=== PATIENT | female | born 1965 | race Caucasian/White ===

== ENCOUNTER → 2017-04-14 | Outpatient (CLI) | payer BC ==
--- NOTE | 2017-04-14 13:27 | MR ---
EXAMINATION TYPE: MR knee RT wo con DATE OF EXAM: 04/14/2017 COMPARISON: NONE HISTORY: Right knee pain, inner knee pain and swelling for 2 months. TECHNIQUE: Multiplanar, multisequence images of the knee is performed without IV contrast. FINDINGS: MEDIAL MENISCUS: Anterior horn is intact without tear. Posterior meniscus is diminished in caliber fr om normal with fraying along posterior margin prior surgery or tear is suspected. LATERAL MENISCUS: Anterior and posterior horns are intact without tear. CRUCIATE LIGAMENTS: The anterior and posterior cruciate ligaments are intact and unremarkable. COLLATERAL LIGAMENTS: The medial collateral ligament and lateral collateral ligament complex are inta ct and unremarkable. EXTENSOR MECHANISM: Visualized quadriceps and patellar tendons are intact. Some increased signal is s een in the distal quadriceps tendon near the patellar ossific fragments superior outer aspect. There is fairly well-defined ossific fragmentation along superior lateral aspect of patella could reflect o ld avulsion type injury or tripartite patella from unfused apophysis. EFFUSION: There is small suprapatellar joint effusion. POPLITEAL CYST: No popliteal/alonso cyst. TRICOMPARTMENT SPACES: Fairly moderate to severe joint space loss patellofemoral compartment is seen. There is more moderate joint space loss medial tibiofemoral compartment. There is fairly mild to mod erate tricompartment joint space spurring. CARTILAGE: There is full-thickness chondromalacia patella with minimal residual cartilage along super ior aspect of the posterior patellar pole. There is near full-thickness loss medial tibiofemoral comp artment. BONE MARROW SIGNAL: There is heterogeneous increased T2 signal involving the medial tibial plateau se en best coronal image 17 and sagittal image 8 as well as axial image 7 over roughly 1 cm area. OTHER: No additional significant abnormality is appreciated. IMPRESSION: 1. Suspect tearing of the posterior horn of medial meniscus. 2. Moderate to advanced tricompartment degenerative changes with full-thickness chondromalacia patell a present. 3. Distal quadriceps tendinitis near suspected tripartite patella. 4. Focal area of osseous contusion or bone marrow edema involving the central medial tibial plateau m ay be product of degenerative changes there is prominent joint space loss and cartilaginous thinning at this level.
== END | disposition home or self-care (01) ==
LOC: RADMRIMAIN 11:39
PROVIDERS: ATTEND Orthopaedic Surgery
DX: M22.41 Chondromalacia patellae, right knee (principal); M76.51 Patellar tendinitis, right knee

== ENCOUNTER 2017-07-09 09:59 | Day surgery (SDC) | payer BC ==
[2017-07-07 10:28] VITALS: BMI 23.7
--- NOTE | 2017-07-08 09:59 | HP ---
HISTORY AND PHYSICAL CHIEF COMPLAINT: Right knee pain. 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 She twisted her knee on uneven ground hyperextending it. She notes persistent medial and anterior pain with prolonged walking. She notes intermittent giving way. She has tried medications and an injection with only partial temporary relief. She notes it severely limits her. PAST MEDICAL HISTORY: Negative. PAST SURGICAL HISTORY: Significant for foot surgery. CURRENT MEDICATIONS: Ibuprofen. FAMILY HISTORY: Significant for cancer. SOCIAL HISTORY: Significant for previous tobacco use. 16 REVIEW OF SYSTEMS: Otherwise reviewed and is noncontributory. She denies drug allergies. PHYSICAL EXAMINATION: The patient is approximately 5 foot 8, 160 pounds, of mesomorphic habitus. HEENT exam is nonfocal. Neck is supple. She has painless passive motion of her right hip. Straight leg raise is negative. Active motion right knee -6 to 115 degrees of flexion. She has a mild effusion. She is tender about the medial joint line. Collaterals are stable, Denis is negative, Dania's elicits medial pain. Her distal neurovascular exam appears to be intact in the right lower extremity. MRI report for the right knee 04/14/2017 shows a posterior medial meniscal tear along with medial compartment degenerative changes. IMPRESSION: 1. Right knee internal derangement with symptomatic medial meniscal tear. 2. Right knee medial compartment osteoarthrosis. RECOMMENDATIONS: I talked to the patient at length regarding her treatment options. She is having persistent pain and limitation along with mechanical symptoms despite conservative measures. After thorough discussion, she opts to proceed with surgery. We will plan to proceed with arthroscopic evaluation with probable partial medial meniscectomy. Risks and benefits were discussed at length in layman's terms. We will likely perform that as an outpatient procedure. MMODL / IJN: [id number] /
[~2017-07-09 09:59] MED LIST: DEXAMETHASONE SOD PHOSPHATE 10 MG/ML 1 ML VIAL IV ONE; HYDROmorphone 0.5 MG/0.5 ML SYRINGE IVP PRN; LACTATED RINGERS 1,000 ML IV SCH; LIDOCAINE 1% 20 ML VIAL (10MG/ML) FOR IV START INTRADERMA PRN; MIDAZOLAM 2 MG/2 ML VIAL IV PRN; ONDANSETRON 4 MG/2 ML VIAL IVP ONE; SCOPOLAMINE 1.5MG/72HR PATCH TRANSDERM ONE; ceFAZolin 1,000 MG in DEXTROSE/WATER 1 50ML.BAG IV ONE
[2017-07-09] MEDS ORDERED: PROPOFOL 10 MG/ML 20 ML VIAL IV ONE (11:14)
[2017-07-09] MEDS ORDERED: fentaNYL (PF) 50 MCG/ML 2 ML AMP ONE (11:14)
[2017-07-09] MEDS ORDERED: MIDAZOLAM 2 MG/2 ML VIAL ONE (11:14)
[2017-07-09] MEDS ORDERED: LIDOCAINE 1% INJ 10MG/ML (20 ML MDV) ONE (11:14)
[2017-07-09] MEDS ORDERED: KETOROLAC 30 MG/ML 1 ML VIAL ONE (11:14)
[2017-07-09] MEDS ORDERED: EPINEPHrine (PF) 1 ML in SODIUM CHLORIDE 0.9% IRRIGATIO 3,000 ML IRRIGATION ONE ×4 (11:27)
[2017-07-09 12:11] VITALS: TEMP 97
--- NOTE | 2017-07-09 12:11 | P.OP ---
Date of Procedure: 07/09/17 Preoperative Diagnosis: Right knee internal derangement Postoperative Diagnosis: Right knee posterior medial meniscal tear/middle one third lateral meniscal tear /grade 3 chondral injury distal lateral medial femoral condyle/grade 3 chondral injury central lateral femoral condyle/grade 3 chondral injury lateral patella facet Procedure(s) Performed: Right knee arthroscopic partial medial meniscectomy/partial lateral meniscectomy /medial femoral chondrectomy/lateral femoral chondrectomy with microfracture/ patellar chondroplasty Anesthesia: GETA Surgeon: Jerald Salinas Estimated Blood Loss (ml): 10 Pathology: none sent Condition: stable Disposition: PACU Indications for Procedure: The patient's a 51-year-old female presents with progressive right knee pain and mechanical symptoms for a previous hyperextension injury. She tried conservative measures with persistence of her symptoms and limitation. A discussion of the risks and benefits of operative intervention versus continued conservative measures was made with patient. She opted to proceed with surgery. Operative risks to include infection, neurovascular injury, development of blood clots, possible incomplete resolution of symptoms, possible worsening symptoms and need for subsequent procedures was discussed. Informed consent was obtained. Operative Findings: As below Description of Procedure: The patient was brought to the operating room, and after induction of general anesthesia examined the right knee. Collaterals were stable, Denis was negative, and posterior drawer was negative. The right lower extremity was prepped and draped in normal fashion. A superior lateral portal was made through a 3 mm skin incision superior and lateral to the patella. This was used for outflow. A lateral portals made through a 5 mm vertical skin incision lateral to the patella tendon above the joint. Diagnostic arthroscopy was performed. A medial portal was made through a similar incision medial to the patella tendon above the joint line. On inspection medial compartment, she was noted to have an oblique tear involving the posterior most aspect of the medial meniscus adjacent to the root. This was in the white-red junction. It was not amenable to repair. This to be back to stable base with straight baskets and a motorized shaver. The edges were contoured. A grade 3 chondral injury involving the distal central portion of the medial femoral condyle was noted. A loose chondral flap was debrided back to stable base with a motorized shaver. The edges were contoured. On inspection of the notch, the anterior cruciate ligament appeared to be intact. On inspection of the lateral compartment, the patient was noted have a radial tear involving the middle one third of the lateral meniscus in the white-white junction. This was debrided back to stable base with straight baskets and a motorized shaver. A grade 3 chondral injury was noted involving the distal medial portion of the lateral femoral condyle. There was a loose chondral fragment. This debrided back to stable base with motorized shaver. A chondral awl was used to reach the subchondral surface and perform a microfracture procedure. On inspection patellofemoral articulation, marked degenerative changes were noted diffusely. A grade 3 chondral defect was noted involving the lateral patellar facet with a loose chondral fragment. This was debrided back to stable base with a motorized shaver. The gutters were clear debris. The knee was then thoroughly irrigated. The portals were closed with Steri-Strips. A sterile dressing was applied in addition to a compression stocking. The patient was awoken from general anesthesia and transferred to recovery room in good condition. Blood loss was estimated at 10 mL no complications were incurred.
[2017-07-09] MEDS ORDERED: HYDROmorphone 1 MG/ML 1 ML SYRINGE IVP ONE (12:54)
[2017-07-09 14:13] VITALS: RESP 18
[2017-07-09 14:15] VITALS: BP 104/60; PULSE 65
== END 2017-07-09 14:37 | disposition home or self-care (01) ==
LOC: OR 09:59
PROVIDERS: ATTEND Orthopaedic Surgery
DX: S83.241A Other tear of medial meniscus, current injury, right knee, initial encounter (principal); S83.281A Other tear of lateral meniscus, current injury, right knee, initial encounter; X58.XXXA Exposure to other specified factors, initial encounter; M17.11 Unilateral primary osteoarthritis, right knee; Z79.1 Long term (current) use of non-steroidal anti-inflammatories (NSAID); Z87.891 Personal history of nicotine dependence
CPT/HCPCS: 81025; 29880; J2250; J1100; J2405; J0171; J2001; J3010; J1885; J1170 ×2; J0690; J2704

== ENCOUNTER → 2018-09-27 | Outpatient (CLI) | payer BC ==
--- NOTE | 2018-09-27 11:19 | MM ---
Reason for exam: screening (asymptomatic). Last mammogram was performed 2 years and 8 months ago. History: Patient is nulliparous. Family history of breast cancer in sister at age 63 and breast cancer in 2 maternal cousins. Benign MG stereo VAD BX LT of the left breast, July 02, 2015. Physical Findings: A clinical breast exam by your physician is recommended on an annual basis and results should be correlated with mammographic findings. MG 3D Screening Mammo W/Cad Bilateral CC and MLO view(s) were taken. Prior study comparison: February 05, 2016, bilateral MG 3d diag mammo w/cad MELISSA. June 13, 2015, left breast MG work up mamm w CAD LT. The breast tissue is extremely dense which could obscure a lesion on mammography. There are benign appearing round calcifications bilaterally. Previous mammotome biopsy in the left breast. There is chronic nodularity in the right breast, larger subareolar 31mm nodule on MLO 32/61 and CC 29/65. This finding is changed when compared with previous exams. ASSESSMENT: Incomplete: need additional imaging evaluation, BI-RAD 0 RECOMMENDATION: Ultrasound of the right breast. [facility] will attempt to contact patient to return for ultrasound.
--- NOTE | 2018-09-27 11:58 | US ---
EXAMINATION TYPE: US axilla RT, US axilla LT DATE OF EXAM: 09/27/2018 COMPARISON: NONE CLINICAL HISTORY: 53-year-old female R59.1 Lymphadenopathy,. Lump bilateral axilla, larger on the rig ht for a few months. TECHNIQUE: Multiple sonographic images of the bilateral axilla were obtained. FINDINGS: Collaborating Supervising Physician notes: Bilateral axilla scanned, lymph nodes noted, largest = 1.8 x 1.7 x 1.0 cm on the right and 1.8 x 1.6 x 1.2 cm on the left . No definite suspicious eccentric cortical thickening/nodularity. Fatty hilum are maintained. IMPRESSION: Mild bilateral axillary lymphadenopathy measuring up to 1.7 cm short axis on the right and 1.6 cm beckie rt axis on the left. These may be reactive/post inflammatory. If there is persistence of growth, the area can be reimaged.
== END | disposition home or self-care (01) ==
LOC: RADMAMWWP 07:53
PROVIDERS: ATTEND Pediatrics
DX: Z12.31 Encounter for screening mammogram for malignant neoplasm of breast (principal); R59.0 Localized enlarged lymph nodes
CPT/HCPCS: 77063; 77067

== ENCOUNTER → 2019-10-04 | Outpatient (CLI) | payer BC ==
--- NOTE | 2019-10-04 13:43 | MM ---
Reason for exam: additional evaluation requested from prior study. Last mammogram was performed 1 year ago. History: Patient is nulliparous. Family history of breast cancer in sister at age 63 and breast cancer in 2 maternal cousins. Benign MG stereo VAD BX LT of the left breast, July 02, 2015. Physical Findings: Nurse did not find any significant physical abnormalities on exam. MG 3D Diag Mammo W/Cad MELISSA Bilateral CC and MLO view(s) were taken. Prior study comparison: September 27, 2018, bilateral MG 3d screening mammo w/cad. February 05, 2016, bilateral MG 3d diag mammo w/cad MELISSA. The breast tissue is heterogeneously dense. This may lower the sensitivity of mammography. There are bilateral round oval circumscribed masses, numerous on the right and an upper outer quadrant left 1.0cm mass 3cm from nipple. Right breast ultrasound for pain and masses and targeted left ultrasound will be performed. Benign appearing bilateral calcifications and left biopsy marker. These results were verbally communicated with the patient and result sheet given to the patient on 10/04/19. ASSESSMENT: Incomplete: need additional imaging evaluation, BI-RAD 0 RECOMMENDATION: Ultrasound of both breasts.
--- NOTE | 2019-10-04 13:46 | USB ---
Reason for exam: additional evaluation requested from abnormal screening. History: Patient is nulliparous. Family history of breast cancer in sister at age 63 and breast cancer in 2 maternal cousins. Benign MG stereo VAD BX LT of the left breast, July 02, 2015. US Breast Limited BILAT Right complete breast ultrasound includes all four quadrants, the retroareolar region and axilla. Finding demonstrates a 0.6 x 0.5 x 0.6cm cystic cluster at 2 o'clock and a 3.5 x 1.6 x 3.1cm cystic lesion at 7 o'clock. Multiple cystic areas noted on the right. The most complex and largest measured. Left limited breast ultrasound including focal area of concern, retroareolar and axilla demonstrates a 1.4 x 0.8 x 1.3cm cystic lesion at 2 o'clock corresponds with mammogram. These results were verbally communicated with the patient and result sheet given to the patient on 10/04/19. ASSESSMENT: Benign, BI-RAD 2 RECOMMENDATION: Routine screening mammogram of both breasts in 1 year. Therapeutic aspiration could be performed of the largest cyst at 7 o'clock on the right if desired.
== END | disposition home or self-care (01) ==
LOC: RADMAMWWP 10:52
PROVIDERS: ATTEND Pediatrics
DX: R92.8 Other abnormal and inconclusive findings on diagnostic imaging of breast (principal)
CPT/HCPCS: 77062; 77066

== ENCOUNTER → 2023-07-12 | Outpatient (CLI) | payer OTHER ==
--- NOTE | 2023-07-16 11:43 | CT ---
EXAMINATION TYPE: CT left knee - [facility] Protocol CT DLP: 828 mGycm, Automated exposure control for dose reduction was used. DATE OF EXAM: 07/12/2023 12:01 PM COMPARISON: CLINICAL INDICATION:Female, 57 years old with history of M17.12 UNILATERAL PRIMARY OSTEOARTHRITIS, LE FT KNE; [facility], pre-op left total knee TECHNIQUE: CT imaging was obtained of the left knee [facility] protocol. Additional coronal and sagittal r eformatted images and soft tissue and bone window were obtained for review. 3-D reconstruction was cr eated on a separate workstation. Contrast used: mL of , Oral contrast used: None FINDINGS: Osseous mineralization appears appropriate. A left total hip arthroplasty is in place. Tip of the demetrio tabular screw projects slightly beyond the cortical margin of the iliac bone medially. Mild right hip arthropathy. Visualized pelvis appears symmetric and intact. Partially seen mild degenerative change of the SI joints. No acute bony abnormality demonstrated. There is small volume free fluid seen in t he pelvis. Left knee demonstrates moderate to severe tricompartmental osteoarthropathy with narrowing of the paramjit nt spaces and marginal spurs. Patella delma is present. 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 Degenerative changes at the patellofemoral joint are associated with lateral subluxation and tilting of the patella. There is a small to moderate size knee joint effusion. Patellar tendons appear grossl y intact. Views of the ankle show mild degenerative changes at the ankle joint with preserved ankle mortise and the talar dome appears unremarkable. [id number] sized plantar calcaneal spur. IMPRESSION: Moderate to severe tricompartmental osteoarthropathy of the left knee. Lateral patellar subluxation and tilting along the patellofemoral joint.
== END | disposition home or self-care (01) ==
LOC: RADCTMAIN 11:26
PROVIDERS: ATTEND Orthopaedic Surgery
DX: S83.012A Lateral subluxation of left patella, initial encounter (principal); M17.12 Unilateral primary osteoarthritis, left knee

== ENCOUNTER → 2023-07-12 | Outpatient (CLI) | payer OTHER ==
[2023-07-12 13:16] LABS: Partial Thromboplastin Time 25.5 sec (22.0-30.0); Prothrombin Time 10.8 sec (10.0-12.5)
[2023-07-12 19:48] LABS: HCT 43.4 % (37.2-46.3); HGB 13.9 g/dL (12.0-15.0); MCV 87.3 FL (80.0-97.0); Mean Platelet Volume 10.5 FL (9.5-12.2); NRBC Per 100 WBC 0 X 10*3/uL (0.00-0.01); Platelet Count 329 X 10*3/uL (140-440); RBC 4.97 X 10*6/uL (4.10-5.20); RDW 14.3 % (11.5-14.5); WBC 7.19 X 10*3/uL (4.50-10.00)
[2023-07-12 20:24] LABS: ALT 18 U/L (8-44); AST 18 U/L (13-35); Albumin 4.7 g/dL (3.8-4.9); Albumin/Globulin Ratio 2.04 Ratio (1.60-3.17); Alkaline Phosphatase 57 U/L (41-126); BUN/Creat Ratio 32.83 Ratio (12.00-20.00); Blood Urea Nitrogen 19.7 mg/dL (9.0-27.0); Calcium 10.4 mg/dL (8.7-10.3); Carbon Dioxide 26.5 mmol/L (21.6-31.8); Chloride 103 mmol/L (96-109); Globulin 2.3 g/dL (1.6-3.3); Glucose 89 mg/dL (70-110); Potassium 4.8 mmol/L (3.5-5.5); Sodium 142 mmol/L (135-145); Total Bilirubin 0.4 mg/dL (0.3-1.2)
== END | disposition home or self-care (01) ==
LOC: LABPAT 11:53
PROVIDERS: ATTEND Orthopaedic Surgery
DX: Z01.812 Encounter for preprocedural laboratory examination (principal); Z22.322 Carrier or suspected carrier of Methicillin resistant Staphylococcus aureus; M17.12 Unilateral primary osteoarthritis, left knee; I45.10 Unspecified right bundle-branch block
CPT/HCPCS: 80053; 83036; 85027; 85610; 85730; 87070; 93005

== ENCOUNTER 2023-08-04 14:19 | Day surgery (SDC) | payer OTHER ==
[2023-07-30 12:46] VITALS: BMI 25.0
[~2023-08-04 14:19] MED LIST changes: +ACETAMINOPHEN TAB 500 MG TAB PO PRN; -DEXAMETHASONE SOD PHOSPHATE 10 MG/ML 1 ML VIAL IV ONE; +DEXAMETHASONE SOD PHOSPHATE 10 MG/ML 1 ML VIAL IV PRN; +DOCUSATE 100 MG CAP PO PRN; +FAMOTIDINE 20 MG/2 ML VIAL IVP PRN; +KETOROLAC 15 MG/ML 1 ML VIAL IVP PRN; -LACTATED RINGERS 1,000 ML IV SCH; +LIDOCAINE 1% (10MG/ML) FOR IV START INTRADERMA PRN; -LIDOCAINE 1% 20 ML VIAL (10MG/ML) FOR IV START INTRADERMA PRN; -MIDAZOLAM 2 MG/2 ML VIAL IV PRN; +ONDANSETRON 4 MG/2 ML VIAL IVP PRN; -SCOPOLAMINE 1.5MG/72HR PATCH TRANSDERM ONE; +TRANEXAMIC 1,000 MG/100ML-NACL 1,000 MG in SALINE 1 100ML.BAG IV PRN; +TRANEXAMIC 1,000 MG/100ML-NACL 1,000 MG in SALINE 1 100ML.BAG IVPB PRN; -ceFAZolin 1,000 MG in DEXTROSE/WATER 1 50ML.BAG IV ONE; +droPERidol 5 MG/2 ML VIAL IVP ONE; +oxyCODONE ER 10 MG TAB.ER.12H PO PRN
[2023-08-04] MEDS: LACTATED RINGERS 1,000 ML IV SCH (15:05)
[2023-08-04] MEDS ORDERED: MIDAZOLAM 2 MG/2 ML VIAL IVP ONE (15:45)
[2023-08-04] MEDS ORDERED: fentaNYL (PF) 50 MCG/1 ML VIAL IVP ONE (15:46)
[2023-08-04] MEDS ORDERED: PHENYLEPHRINE 10 MG/ML VIAL ONE (16:18)
[2023-08-04] MEDS ORDERED: MIDAZOLAM 2 MG/2 ML VIAL ONE (16:18)
[2023-08-04] MEDS ORDERED: LIDOCAINE 1% INJ 10MG/ML (20 ML MDV) ONE (16:18)
[2023-08-04] MEDS ORDERED: PROPOFOL 10 MG/ML 20 ML VIAL IV ONE (16:18)
[2023-08-04] MEDS ORDERED: KETAMINE HCL IN 0.9 % NACL 50 MG/5 ML SYRINGE ONE (16:18)
[2023-08-04] MEDS ORDERED: TRANEXAMIC 1,000 MG/100ML-NACL PREMIX BAG ONE (16:18)
[2023-08-04] MEDS ORDERED: SODIUM CHLORIDE 0.9% (PF) 10 ML VIAL ONE (16:18)
[2023-08-04] MEDS ORDERED: ROPIVACAINE 5 MG/ML 30 ML VIAL ONE (16:18)
[2023-08-04] MEDS ORDERED: SUCCINYLCHOLINE CHLORIDE 200 MG/10 ML VIAL IV ONE (16:18)
[2023-08-04] MEDS ORDERED: HYDROmorphone (PF) 1 MG/ML ONE (16:18)
[2023-08-04] MEDS ORDERED: fentaNYL (PF) 50 MCG/ML 2 ML AMP ONE (16:18)
[2023-08-04] MEDS: ROPIVACAINE/EPI/CLONIDINE/KET 50 ML SYRINGE MISCELLANE PRN ×2 (16:55→18:09)
[2023-08-04] MEDS ORDERED: LACTATED RINGERS 1,000 ML IV ONE (18:05)
[2023-08-04] MEDS ORDERED: MAGNESIUM HYDROXIDE 2,400 MG/30 ML CUP PO PRN (18:53)
[2023-08-04] MEDS ORDERED: HYDROmorphone 1 MG/ML 1 ML SYRINGE IVP PRN (18:53)
[2023-08-04] MEDS ORDERED: NA PHOS,M-B/NA PHOS,DI-BA 133 ML ENEMA RECTAL PRN (18:53)
[2023-08-04] MEDS ORDERED: hydrOXYzine pamoate 25 MG CAP PO PRN (18:53)
[2023-08-04] MEDS ORDERED: diazePAM 5 MG TAB PO PRN (18:53)
[2023-08-04] MEDS ORDERED: NALOXONE 0.4 MG/ML 1 ML VIAL IV PRN (18:53)
[2023-08-04] MEDS ORDERED: bisacodyL 10 MG SUPP RECTAL PRN (18:53)
[2023-08-04] MEDS ORDERED: HYDROcodone/APAP 5-325MG 1 EACH TAB PO PRN (18:53)
[2023-08-04] MEDS ORDERED: ONDANSETRON 4 MG/2 ML VIAL IVP PRN (18:53)
--- NOTE | 2023-08-04 19:04 | P.OP ---
Date of Procedure: 08/04/23 Preoperative Diagnosis: 1. Severe left knee osteoarthritis with complete cartilage loss in the patellofemoral and medial compartment 2. 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 Left total knee arthroplasty 2. Computer assisted musculoskeletal navigation using CT/MRI images Implants: 1. Virgen Triathlon CR/PS Femur Size #3 2. Virgen Triathlon [place] Tibial Base Size #2 3. Virgen Triathlon CS poly Size #9 4. Cut Off Triathlon all poly patella, Size #29 Anesthesia: GETA, regional Surgeon: Lamont Olson Silk Screen Processor #1: Alexander Elizabeth Estimated Blood Loss (ml): 150 IV fluids (ml): 800 Pathology: none sent Condition: stable Disposition: PACU Indications for Procedure: The patient is a very pleasant 57-year-old female who I previously done a left total hip replacement on. She did well with this and then presented with chronic left knee pain. She had a chronic lateral patellar dislocation and severe patellofemoral arthritis as well as diffuse arthritic changes in the medial lateral compartment. She had failed nonsurgical treatment and requested surgical intervention. She initially requested a lateral release or attempts to realign the patella without arthroplasty. I recommended a total knee replacement and the patient sought out several other opinions, all of whom told her that her lateral release in setting of severe patellofemoral arthritis was not indicated. My recommendation was to proceed with total knee replacement. The patient understands the potential risks particularly recurrent lateral subluxation of the patella, patellar maltracking, and stiffness. She had realistic expectations in regards to the outcome of her total knee replacement. I met with the patient preoperatively in the office setting and discussed treatment of their symptomatic knee arthritis. They failed a long course of nonsurgical treatment and elected to proceed with an elective total knee replacement. I discussed the potential risks and complications at length and gave them ample time to ask questions. Risks discussed included: risks from anesthesia, superficial site surgical infection, acute and/or chronic periprosthetic joint infection, delayed wound healing, drainage, wound necrosis, instability, stiffness, stiffness requiring manipulation and/or revision surgery, damage to local blood vessels or nerves, aseptic loosening of the implants, extensor mechanism issues including disruption, patellar maltracking, avascular necrosis etc., continued or worsened knee pain, generalized dissatisfaction with surgical outcome, need for revision surgery, an inability to regain preinjury level of function, DVT, PE, other medical complications, and possibly loss of life or limb. The patient voiced their understanding that while these are the most common complications other less common complications are possible. They provided both their verbal and written consent to go forward with surgery. Operative Findings: The patella was severely arthritic and chronically dislocated. There was trochlear dysplasia with a convex trochlea. The patella was very thin and was cut to 12 mm final thickness. The medial capsule was grossly attenuated and following completion of the procedure was imbricated to allow closure and assist with patellar tracking. A lateral release was also performed prior to closing to help assist with patellar tracking. Description of Procedure: The patient was identified in preoperative holding and the correct operative extremity was verified and marked with a marker. I reviewed the consent form with the patient at length. All of their questions were answered. The patient was given a block by anesthesia. They were then brought back to the operating room. They were transferred onto the operating room table where a general anesthetic, preoperative antibiotics, and tranexamic acid were administered by anesthesia. A tourniquet was applied to the proximal aspect of the operative extremity. The contralateral extremity was padded under the heel and secured to the operating room table with a nonsterile blue towel and tape. The ipsilateral arm was carefully draped across the patient's chest and secured with a pillow and foam. A post was applied over the lateral aspect of the ipsilateral thigh and a bolster was placed under the ipsilateral foot. I verified that the operative extremity was stable and the knee was flexed to 90. The operative extremity was then placed in a leg crooks, nonsterile drapes were applied, and the extremity was prepped and draped sterilely in the standard sterile fashion. Prior to starting surgery timeout was performed identifying the correct patient, operative extremity, and procedure. The leg was then elevated, exsanguinated with an Esmarch bandage, and the tourniquet was inflated. An anterior midline incision was made sharply with a scalpel. Once I had dissected deep to the superficial fascial layer medial and lateral flaps were elevated. A medial parapatellar arthrotomy was created. Upon opening the knee joint there were diffuse arthritic changes in all 3 compartments. Medial capsule was found to be attenuated from chronic lateral patellar dislocation. The anterior horn of the medial meniscus were sharply released and a medial release was performed around the posterior medial corner of the knee to facilitate retractor placement. The fat pad was excised with electrocautery. The patella was found to be severely arthritic and a provisional cut was made with a sagittal saw to facilitate mobilization of the extensor mechanism during the procedure. The patella was very thin and was cut to 12 mm. Remnants of the ACL and PCL were then excised from the notch. 4 mm pins were then placed within the incision in the medial distal femur and proximal tibia. Arrays were applied to the pins and I verified they were completely tightened. The knee was then registered with the [employer] robot and manipulations in implant position were made to balance the knee and opitmize implant position. Using the [employer] robotic saw all cuts were made in accordance with our plan. After all bony fragments had been removed the cuts were verified with the planar probe. The tibia was then subluxed forward and sized. The knee was brought into flexion and a lamina optical technician was placed to allow removal of the meniscal remnants both medially and laterally as well as posterior osteophytes. Local anesthetic was then infiltrated around the joint capsule. Trial implants were then placed within the knee. Range of motion and collateral ligament tension was then evaluated. Adjustments in implant size and position were then made accordingly. Once the knee was felt to be appropriately balanced the Keven pins were removed. The patella was then recut, sized, and punched. A trial patellar button was then placed. With the trial components in place, the patella tracked midline. The femur was then drilled and the trial component removed. The trial tibial component was then appropriately rotated, pinned, and prepared for the keel. All trial components were then removed from the knee. The knee was thoroughly irrigated with pulsatile lavage. Cement was prepared via vacuum mixing in a bowl on the back table. I then hand pressurized cement into the femur and tibia and placed the implants beginning with the tibial base tray and poly liner, femoral component, and finally the patellar button. All extruded cement was removed including from the pin sites. Once the cement had hardened the knee was evaluated one final time with the final polyethylene liner in place. The knee had full extension and flexion and felt stable to varus and valgus stress throughout the arc of motion. Given the chronic dislocation and tight lateral tissues a partial lateral lease was performed. The tourniquet was released and with the tourniquet down the patella tracked midline. All bleeders were controlled with electrocautery. The knee was then soaked for 3 minutes with a dilute Betadine soak. The knee was thoroughly irrigated using 3 L of sterile saline and pulsatile lavage. A deep drain was placed. The extensor mechanism was then reapproximated using pop off Vicryl sutures followed by a running barbed suture. The knee was then closed in layers with a 0 strata fix for the deep fascial layer, 2-0 strata fix for the superficial subcutaneous layer and Monocryl and Steri-Strips for the skin. A sterile dressing and drain sponge were applied. I verified that all instrument, sponge, and sharp counts were correct. The patient was then transferred off the operating room table, extubated, and brought to recovery having tolerated the procedure well. Hector Elizabeth DPM required as a skilled energy assistant due to the complexity of the surgery for patient positioning, retraction, exposure, completion of surgical procedure, closure of the wound, and application of dressing. PLAN: The patient can weight-bear as tolerated on the operative extremity. DVT prophylaxis with aspirin 81 mg twice a day based on preoperative risk stratification. Follow-up in the office in 2 weeks for wound check and x-rays of the knee including an AP and lateral.
[2023-08-04] MEDS ORDERED: ONDANSETRON 4 MG/2 ML VIAL IVP ONE (19:27)
--- NOTE | 2023-08-04 19:28 | P.ANPRN ---
Procedure Note - Anesthesia - Nerve Block Performed Left Adductor Canal Single Time Out Performed: Yes (1545) Date of Procedure: 08/04/23 Procedure Start Time: 15:46 Procedure Stop Time: 15:50 Location of Patient: PreOp Indication: Acute Post-Operative Pain, Requested by Surgeon Specifically requested for management of pain by DrEva: Lamont Olson Sedation Type: Sedate with meaningful contact maintained Preparation: Sterile Prep Position: Supine Catheter: None Needle Types: Pajunk Needle Gauge: 21 Ultrasound used to visualize needle placement: Yes Ultrasound used to observe medication spread: Yes Injectate: 0.5% Ropivacaine (see comment for volume) (15cc + 5cc nacl pf) Blood Aspirated: No Pain Paresthesia on Injection Noted: No Resistance on Injection: Normal Image Stored and Saved: Yes Events: Uneventful and Well Tolerated
--- NOTE | 2023-08-04 19:29 | P.ANPRN ---
Procedure Note - Anesthesia - Nerve Block Performed Left iPack Single Time Out Performed: Yes (1545) Date of Procedure: 08/04/23 Procedure Start Time: 15:51 Procedure Stop Time: 15:55 Location of Patient: PreOp Indication: Acute Post-Operative Pain, Requested by Surgeon Specifically requested for management of pain by DrEva: Lamont Olson Sedation Type: Sedate with meaningful contact maintained Preparation: Sterile Prep Position: Supine Catheter: None Needle Types: Pajunk Needle Gauge: 21 Ultrasound used to visualize needle placement: Yes Ultrasound used to observe medication spread: Yes Injectate: 0.5% Ropivacaine (see comment for volume) (15cc + 5cc nacl pf) Blood Aspirated: No Pain Paresthesia on Injection Noted: No Resistance on Injection: Normal Image Stored and Saved: Yes Events: Uneventful and Well Tolerated
--- NOTE | 2023-08-04 19:52 | XR ---
EXAMINATION TYPE: XR knee limited LT DATE OF EXAM: 08/04/2023 7:36 PM CLINICAL INDICATION:Female, 57 years old with history of Evaluation for Postop abnormality and alignm ent; [facility] COMPARISON: None. TECHNIQUE: XR knee limited LT; examined in Frontal, lateral and oblique projections. FINDINGS: Status post total knee arthroplasty changes with hardware in appropriate alignment and in tact. No evidence of fracture. Subcutaneous lucencies and lucencies within the joint consistent with surgical changes. Drainage catheter terminates above the knee. IMPRESSION: Status post total knee arthroplasty changes with hardware intact and appropriate alignment. No fractu res identified.
[2023-08-04 20:17] LABS: Glucose,Whole Blood 152 mg/dL (70-110)
[2023-08-04] MEDS ORDERED: SENNOSIDES-DOCUSATE SODIUM 1 EACH TAB PO SCH (21:00)
[2023-08-04] MEDS: ASPIRIN 81 MG PO SCH (21:39)
[2023-08-04] MEDS: HYDROcodone/APAP 10-325MG 1 EACH TAB PO PRN (21:45)
[2023-08-04] MEDS ORDERED: TEMAZEPAM 15 MG CAP PO PRN (22:00)
[2023-08-04] MEDS: SODIUM CHLORIDE 0.9% 1,000 ML IV SCH (22:35)
--- NOTE | 2023-08-05 03:02 | P.CONS ---
History of Present Illness - Reason for Consult Consult date: 08/04/23 perioperative medical management - Chief Complaint left TKA - History of Present Illness 57 year old female with no significant past medical history patient is here for scheduled left total knee arthroplasty, tolerated procedure well, no observed immediate post op complications, denies any chest pain , SOB, fever, nausea or vomiting patient has not walked yet, did not pass urine or bowel movement yet. tolerating water PO. review of systems Pertinent positives as noted in HPI. All other systems were reviewed and are negative on exam Constitutional: No acute distress, conversant, pleasant Eyes: Anicteric sclerae, moist conjunctiva, Pupils equal round reactive to light Neck: Supple, no masses, or JVD No carotid bruits No thyromegaly Lungs: Clear to auscultation Clear to percussion Normal respiratory effort, no accessory muscle use Cardiovascular: Heart regular in rate and rhythm, No murmurs, gallops, or rubs No peripheral edema Abdominal: Soft Nontender, no guarding, rebound or rigidity Abdomen moving with respiration Normoactive bowel sounds Extremities: left knee drain in place, No digital cyanosis No clubbing Pedal pulses intact and symmetrical Radial pulses intact and symmetrical No calf tenderness Psychiatric: Alert and oriented to person, place and time Appropriate affect fair judgment Neuro Muscles Strength 5/5 in all 4 extremities with limitations over left LE due to post op Sensation to light touch grossly present throughout Cranial nerves II-XII grossly intact Past Medical History Past Medical History: GERD/Reflux, Osteoarthritis (OA) Additional Past Medical History / Comment(s): gerd resolved. History of Any Multi-Drug Resistant Organisms: None Reported Additional Past Surgical History / Comment(s): bunionectomy, meniscus repair right knee, total left hip (07/2022)., right carpal tunnel, laser veins. Past Anesthesia/Blood Transfusion Reactions: No Reported Reaction, Family History of Problems w/ Anesthesia Additional Past Anesthesia/Blood Transfusion Reaction / Comm: pt has 12 siblings and they do not require much anesthesia- low bp afterwards. Past Psychological History: No Psychological Hx Reported Smoking Status: Former smoker Past Alcohol Use History: Daily Additional Past Alcohol Use History / Comment(s): quit smoking 20 years ago, hx of 1 pp/week. drinks 1 glass wine daily Past Drug Use History: None Reported - Past Family History Sister(s) Family Medical History: Deep Vein Thrombosis (DVT) Brother(s) Family Medical History: Deep Vein Thrombosis (DVT) Medications and Allergies Home Medications Medication Instructions Recorded Confirmed Type Ibuprofen [Motrin Ib] 400 mg PO BID PRN 07/30/23 07/30/23 History Aspirin 81 mg PO BID #60 tab 08/04/23 Rx Cyclobenzaprine [Flexeril] 5 mg PO TID #20 tablet 08/04/23 Rx Diclofenac Sodium [Voltaren] 75 mg PO BID #60 tab 08/04/23 Rx Docusate [Colace] 100 mg PO BID #28 capsule 08/04/23 Rx HYDROcodone/APAP 5-325MG [[place] 1 - 2 tab PO Q6HR PRN #32 tab 08/04/23 Rx 5-325] Omeprazole 40 mg PO DAILY #30 cap 08/04/23 Rx Allergies Allergy/AdvReac Type Severity Reaction Status Date / Time No Known Allergies Allergy Verified 08/04/23 14:32 Physical Exam Vitals: Vital Signs Temp Pulse Resp BP Pulse Ox 08/04/23 19:31 94 17 120/71 97 08/04/23 19:15 100 15 109/61 95 08/04/23 19:00 90 15 100/48 95 08/04/23 18:45 97.6 F 97 12 113/60 95 08/04/23 16:00 71 16 108/71 99 08/04/23 14:48 97.6 F 95 16 149/83 99 Intake and Output 08/04/23 08/04/23 08/04/23 06:59 14:59 22:59 Intake Total 1750 Output Total 100 Balance 1650 Intake: IV 1750 Output: Estimated Blood Loss 100 Other: Weight 75 kg 75 kg Results Labs: Abnormal Lab Results - Last 24 Hours (Table) 08/04/23 Range/Units 20:13 POC Glucose (mg/dL) 152 H (70-110) mg/dL Assessment and Plan Assessment: left total knee arthroplasty POD zero further management per orthopedic team stable from medical stand point check CBC and BMP in AM thank you for this consultation
--- NOTE | 2023-08-05 08:00 | P.DS ---
Providers Date of admission: 08/04/2023 Attending physician: Lamont Olson Consults: 08/04/23 18:53 Consult Physician Routine Consulting Provider: Dorothy Irizarry Consult Reason/Comments: post op medical management Do you want consulting provider notified?: Yes Primary care physician: Raffy Geov[facility] Course: The patient is very pleasant previously healthy 57-year-old female who underwent an uncomplicated left total knee replacement yesterday. Following an uncompensated surgery she was transferred to the orthopedic floor. She received 2 doses of postoperative antibiotics. She was transitioned from IV to oral pain medication. She was seen and evaluated by internal medicine. She was started on aspirin 81 mg twice a day for DVT prophylaxis. She worked with physical therapy. She ultimately did well and was cleared for discharge home. Plan - Discharge Summary Discharge Rx Participant: Yes New Discharge Prescriptions: New HYDROcodone/APAP 5-325MG [[place] 5-325] 1 - 2 tab PO Q6HR PRN #32 tab PRN Reason: Pain Cyclobenzaprine [Flexeril] 5 mg PO TID #20 tablet Docusate [Colace] 100 mg PO BID #28 capsule Ondansetron [Zofran] 4 mg PO Q8HR PRN #20 tab PRN Reason: Nausea Aspirin 81 mg PO BID #60 tab Omeprazole 40 mg PO DAILY #30 cap Diclofenac Sodium [Voltaren] 75 mg PO BID #60 tab No Action Ibuprofen [Motrin Ib] 400 mg PO BID PRN PRN Reason: Pain Discharge Medication List Ibuprofen [Motrin Ib] 400 mg PO BID PRN 07/30/23 [History] Aspirin 81 mg PO BID #60 tab 08/04/23 [Rx] Cyclobenzaprine [Flexeril] 5 mg PO TID #20 tablet 08/04/23 [Rx] Diclofenac Sodium [Voltaren] 75 mg PO BID #60 tab 08/04/23 [Rx] Docusate [Colace] 100 mg PO BID #28 capsule 08/04/23 [Rx] HYDROcodone/APAP 5-325MG [[place] 5-325] 1 - 2 tab PO Q6HR PRN #32 tab 08/04/23 [Rx] Omeprazole 40 mg PO DAILY #30 cap 08/04/23 [Rx] Ondansetron [Zofran] 4 mg PO Q8HR PRN #20 tab 08/05/23 [Rx] Follow up Appointment(s)/Referral(s): Lamont Olson MD [Medical Doctor] - 2 Weeks Activity/Diet/Wound Care/Special Instructions: 1. Weight-bear as tolerated on your operative extremity unless instructed otherwise. Use a walker or other assistive device to ambulate. 2. Leave surgical dressing in place. If your dressing becomes saturated with blood, there is drainage, or the dressing becomes loose please contact the office. 3. It is okay to shower with your surgical dressing, but do not submerge in water (no hot tubs, bath's, swimming etc.) 4. Make sure to take her blood clot prevention medication as prescribed (aspirin, Eliquis, Xarelto, and Plavix are commonly prescribed medications for blood clot prevention) 5. While taking [place] or Percocet for pain make sure you're taking a stool softener (Colace) and drink lots of water. 6. Keep all follow-up appointments as scheduled. You will usually be seen in 1-2 weeks following surgery. 7. Please contact the office with any questions or concerns [phone] Discharge Disposition: HOME SELF-CARE
[2023-08-05 08:03] VITALS: BP 110/75; PULSE 75; RESP 18; TEMP 97.6
[2023-08-05 09:03] LABS: Blood Urea Nitrogen 14.6 mg/dL (9.0-27.0); Calcium 8.9 mg/dL (8.7-10.3); Carbon Dioxide 25.7 mmol/L (21.6-31.8); Chloride 105 mmol/L (96-109); Glucose 121 mg/dL (70-110); Potassium 4.8 mmol/L (3.5-5.5); Sodium 139 mmol/L (135-145)
[2023-08-05 09:13] LABS: Basophils # (A) 0.02 X 10*3/uL (0.00-0.10); Basophils % (A) 0.2 %; Eosinophils # (A) 0 X 10*3/uL (0.04-0.35); Eosinophils % (A) 0 %; HCT 32.9 % (37.2-46.3); HGB 10.5 g/dL (12.0-15.0); Lymphocytes % (A) 8.7 %; MCH 27.9 pg (27.0-32.0); MCHC 31.9 g/dL (32.0-37.0); MCV 87.5 FL (80.0-97.0); Mean Platelet Volume 9.9 FL (9.5-12.2); Monocytes # (A) 0.79 X 10*3/uL (0.20-1.00); Monocytes % (A) 6.3 %; NRBC Per 100 WBC 0 X 10*3/uL (0.00-0.01); Neutrophils # (A) 10.67 X 10*3/uL (1.80-7.70); Neutrophils % (A) 84.3 %; Platelet Count 229 X 10*3/uL (140-440); RBC 3.76 X 10*6/uL (4.10-5.20); RDW 14.9 % (11.5-14.5); WBC 12.64 X 10*3/uL (4.50-10.00)
[2023-08-05] MEDS: LACTATED RINGERS 1,000 ML IV SCH (09:42)
[2023-08-05] MEDS: SODIUM CHLORIDE 0.9% 1,000 ML IV SCH (09:42)
[2023-08-05] MEDS: HYDROcodone/APAP 10-325MG 1 EACH TAB PO PRN (09:43)
[2023-08-05] MEDS: ASPIRIN 81 MG PO SCH (09:43)
[2023-08-05] MEDS ORDERED: ONDANSETRON ODT 4 MG TAB PO PRN (09:46)
--- NOTE | 2023-08-05 16:34 | P.PN ---
Progress Note - Text Progress Note Date: 08/05/23 Presenting complaint: Left total knee arthroplasty 08/05/2023: Sitting up. Did walk with therapy in the hallway. No nausea vomiting. Did tolerate some food. Some pain at the operative site. Current medications reviewed On examination: VITAL SIGNS: [97.6, 75, 18, 110/75, 99% room air] GENERAL APPEARANCE: BMI 25.1, laying in bed comfortable. HEENT: Normal external appearance of nose and ear. Oral cavity normal EYES: Pupils equal. Conjunctiva normal. NECK: JVD not raised. Mass not palpable. RESPIRATORY: Respiratory effort normal. Lungs clear to auscultation. CARDIOVASCULAR: First and second sounds normal. No edema. ABDOMEN: Soft. Liver and spleen not palpable. No tenderness. No mass palpable. PSYCHIATRY: Alert and oriented x3. Mood and affect normal. MUSCULAR skeletal: Dressing over the left knee. Evidence of OA. INVESTIGATIONS, reviewed in the clinical context: 08/05/2023: White count 12.6 and globin 10.5 platelets 229 potassium 4.8 creatinine 0.5 07/12/2023: White count 7.1 hemoglobin 13.9 potassium 4.8 creatinine 0.6 Assessment and plan: -Left total knee arthroplasty Did walk with therapy in the hallway. Aspirin for DVT prophylaxis. Pain control. -Acute postprocedure blood loss anemia expected from surgery Ferrous sulfate. -Primary osteoarthritis Tylenol as needed -Chronic insomnia from pain from arthritis. Pain control for better sleep. Care was discussed with the patient has been of the bedside. Questions answered. Follow-up with PCP upon discharge. Thank you Dr. Olson
== END 2023-08-05 13:10 | disposition home or self-care (01) ==
LOC: OR 14:19 → 4SSUR 18:54 → OR 08-05 13:10
PROVIDERS: ATTEND Orthopaedic Surgery
DX: S83.015A Lateral dislocation of left patella, initial encounter (principal); M17.12 Unilateral primary osteoarthritis, left knee; G89.18 Other acute postprocedural pain; F10.90 Alcohol use, unspecified, uncomplicated; Z87.891 Personal history of nicotine dependence; Z79.899 Other long term (current) drug therapy; Z96.641 Presence of right artificial hip joint; Z96.651 Presence of right artificial knee joint; Z98.890 Other specified postprocedural states; X58.XXXA Exposure to other specified factors, initial encounter
CPT/HCPCS: 0055T; 27447; 64447; 64999; 80048; 85025

== ENCOUNTER → 2024-08-01 | Outpatient (CLI) | payer OTHER ==
--- NOTE | 2024-08-01 10:49 | US ---
EXAMINATION TYPE: US venous doppler duplex LE LT DATE OF EXAM: 08/01/2024 10:32 AM COMPARISON: NONE CLINICAL INDICATION: Female, 58 years old with history of M25.562 PAIN IN LEFT KNEE; edema, Pain TECHNIQUE: The lower extremity deep venous system is examined utilizing real time linear array sonog tracy with graded compression, color doppler sonography, and spectral doppler. SIDE PERFORMED: Left FINDINGS: VESSELS IMAGED: Common Femoral Vein Deep Femoral Vein Greater Saphenous Vein * Femoral Vein Popliteal Vein Small Saphenous Vein * Proximal Calf Veins (* superficial vessels) Left Leg: Negative for DVT, Color Doppler imaging shows patency of the vessels. Spectral waveforms a re within normal limits. IMPRESSION: 1. No evidence of deep vein thrombosis of the left lower extremity. [facility], , 08/01/2024 10:46 AM
== END | disposition home or self-care (01) ==
LOC: RADUSWWP 10:05
PROVIDERS: ATTEND Orthopaedic Surgery
DX: M25.562 Pain in left knee (principal)

== ENCOUNTER 2024-08-14 13:09 | Day surgery (SDC) | payer OTHER ==
[2024-08-10 11:26] VITALS: BMI 23.1
[~2024-08-14 13:09] MED LIST changes: -ACETAMINOPHEN TAB 500 MG TAB PO PRN; -DEXAMETHASONE SOD PHOSPHATE 10 MG/ML 1 ML VIAL IV PRN; -DOCUSATE 100 MG CAP PO PRN; -FAMOTIDINE 20 MG/2 ML VIAL IVP PRN; -HYDROmorphone 0.5 MG/0.5 ML SYRINGE IVP PRN; -KETOROLAC 15 MG/ML 1 ML VIAL IVP PRN; -ONDANSETRON 4 MG/2 ML VIAL IVP ONE; -ONDANSETRON 4 MG/2 ML VIAL IVP PRN; -TRANEXAMIC 1,000 MG/100ML-NACL 1,000 MG in SALINE 1 100ML.BAG IV PRN; -TRANEXAMIC 1,000 MG/100ML-NACL 1,000 MG in SALINE 1 100ML.BAG IVPB PRN; -droPERidol 5 MG/2 ML VIAL IVP ONE; -oxyCODONE ER 10 MG TAB.ER.12H PO PRN
[2024-08-14 13:39] VITALS: TEMP 97.8
[2024-08-14] MEDS: LACTATED RINGERS 1,000 ML IV SCH (13:45)
[2024-08-14] MEDS: IV FLUID CONTINUATION 1,000 ML IV ONE (13:45)
[2024-08-14] MEDS ORDERED: LIDOCAINE 1% INJ 10MG/ML (20 ML MDV) ONE (14:44)
[2024-08-14] MEDS ORDERED: PROPOFOL 10 MG/ML 20 ML VIAL IV ONE (14:44)
--- NOTE | 2024-08-14 14:49 | P.GSHP ---
History of Present Illness H&P Date: 08/14/24 Chief Complaint: Screening colonoscopy This is a 58-year-old female presents today for screening colonoscopy. Patient denies any significant GI complaints. Past Medical History Past Medical History: GERD/Reflux Additional Past Medical History / Comment(s): no meds now for gerd History of Any Multi-Drug Resistant Organisms: None Reported Past Surgical History: Joint Replacement, Orthopedic Surgery Additional Past Surgical History / Comment(s): knee rplaced left and hip replaced left, meniscus repair right knee, right foot bunion, right hand carpal tunnel Past Anesthesia/Blood Transfusion Reactions: Postoperative Nausea & Vomiting (PONV) Additional Past Anesthesia/Blood Transfusion Reaction / Comment(s): no blood transfusion Smoking Status: Never smoker - Past Family History Mother Family Medical History: Cancer Additional Family Medical History / Comment(s): ovarioan Sister(s) Family Medical History: Cancer Additional Family Medical History / Comment(s): ovarioan, another sister breast , 2 sisters with dvt, sister non hodgkins lymphoma, sister with lymphadenopathy Brother(s) Family Medical History: Cancer Additional Family Medical History / Comment(s): leukemia another brother with dvt, Medications and Allergies Home Medications Medication Instructions Recorded Confirmed Type Docusate [Colace] 100 mg PO BID #28 capsule 08/04/23 08/14/24 Rx HYDROcodone/APAP 5-325MG [[place] 1 - 2 tab PO Q6HR PRN #32 tab 08/04/23 08/14/24 Rx 5-325] Ascorbic Acid [Vitamin C] 1,000 mg PO DAILY 08/10/24 08/14/24 History Diclofenac Sodium [Voltaren] 75 mg PO DAILY 08/10/24 08/14/24 History Magnesium Oxide [Magnesium] 500 mg PO DAILY 08/10/24 08/14/24 History Milk Thistle Sd Ext/Blessed Th 1 tab PO DAILY 08/10/24 08/14/24 History [Milk Thistle 175-120 mg Cap] Allergies Allergy/AdvReac Type Severity Reaction Status Date / Time No Known Allergies Allergy Verified 08/14/24 13:29 Surgical - Exam Vital Signs Temp Pulse Resp BP Pulse Ox 97.8 F 123 H 16 153/85 98 08/14/24 13:33 08/14/24 13:33 08/14/24 13:33 08/14/24 13:33 08/14/24 13:33 - General well developed, well nourished, no distress - Eyes PERRL - ENT normal pinna - Neck no masses - Respiratory normal expansion - Cardiovascular Rhythm: regular - Abdomen Abdomen: soft, non tender Assessment and Plan Assessment: Will perform screening colonoscopy
--- NOTE | 2024-08-14 15:04 | P.OP ---
Date of Procedure: 08/14/24 Preoperative Diagnosis: Screening colonoscopy Postoperative Diagnosis: Diverticulosis Procedure(s) Performed: Colonoscopy Anesthesia: MAC Surgeon: Cheng Haque Pathology: none sent Condition: stable Disposition: PACU Description of Procedure: The patient is placed on the endoscopy table in the lateral position. She received IV sedation. Digital rectal exam was performed. This revealed no abnormality. The flexible colonoscope was then placed patient anus passed throughout the entire colon. The ileocecal valve was visualized. The cecum, ascending and transverse colon appeared normal. In the descending sigmoid colon there was mild diverticular changes. The scope was brought back rectum this appeared normal. Scope withdrawn for the patient.
[2024-08-14 15:23] VITALS: BP 123/80; PULSE 86; RESP 18
== END 2024-08-14 16:02 ==
LOC: ORWHC2ENDO 13:09
PROVIDERS: ATTEND Surgery
DX: Z12.11 Encounter for screening for malignant neoplasm of colon (principal); K57.30 Diverticulosis of large intestine without perforation or abscess without bleeding; K21.9 Gastro-esophageal reflux disease without esophagitis; Z79.899 Other long term (current) drug therapy; Z98.890 Other specified postprocedural states
CPT/HCPCS: 45378; J2003; J2704

== ENCOUNTER → 2024-08-17 | Outpatient (CLI) | payer OTHER ==
--- NOTE | 2024-08-17 15:15 | US ---
EXAMINATION TYPE: US pelvis complete transvag DATE OF EXAM: 08/17/2024 COMPARISON: NONE CLINICAL INDICATION: Female, 58 years old with history of N95.0 ABNORMAL UTERINE BLEEDING; bleeding a nd pain. TECHNIQUE: Transvaginal (TV) and Transabdominal (TA) . FINDINGS: EXAM MEASUREMENTS: Uterus: 10.6 x 5.9 x 6.5 cm Endometrial Stripe: 3.8 cm Left Ovary: 1.3 x 1.9 x 1.9 cm 1. Uterus: Retroverted 2. Endometrium: enlarged heterogenous complex area measuring 3.2 x 2.0 x 3.8 cm. 3. Right Ovary: Obscured by overlying bowel gas 4. Left Ovary: Limited due to bowel gas. 5. Bilateral Adnexa: wnl 6. Posterior cul-de-sac: wnl IMPRESSION: There is suspected fluid collection in the fundus likely endometrial canal. There is some irregular thickening. Consider cervical stenosis. Cannot exclude endometrial neoplasm. Advise furthe r investigation with direct visualization and sampling. [facility], , 08/17/2024 3:12 PM
== END | disposition home or self-care (01) ==
LOC: RADUSWWP 14:07
PROVIDERS: ATTEND Obstetrics & Gynecology
DX: N95.0 Postmenopausal bleeding (principal)
CPT/HCPCS: 76830; 76856

== ENCOUNTER 2025-01-08 20:37 | Inpatient (IN) | payer OTHER ==
--- NOTE | 2025-01-08 20:55 | ED ---
Female Urogenital HPI - General Chief complaint: Vaginal Bleeding Stated complaint: Vaginal Bleeding-Cancer Time Seen by Provider: 01/08/25 20:44 Source: patient, RN notes reviewed, old records reviewed Mode of arrival: ambulatory Limitations: no limitations - History of Present Illness Initial comments: This 59 female to the ER for vaginal bleeding, patient has history of uterine cancer, diagnosed, patient is having persistent bleeding significant pain and is looking for guidance in consultation in regards to treatment plans and options, significant bleeding overnight concerned that she may be losing too much blood so feelings of lightheadedness and dizziness MD Complaint: vaginal bleeding, vaginal discharge Location: suprapubic Radiation: suprapubic Severity: moderate Severity scale (1-10): 5 Consistency: constant Improves with: none Worsens with: none Associated Symptoms: vaginal bleeding, abdominal pain - Related Data Previous Rx's Medication Instructions Recorded HYDROcodone/APAP 5-325MG [Venus 1 tab PO Q6H #30 tab 01/12/25 5-325] fentaNYL 25MCG/HR PATCH [Duragesic 1 patch TRANSDERM Q72H #10 patch 01/12/25 25MCG/HR] Allergies Allergy/AdvReac Type Severity Reaction Status Date / Time No Known Allergies Allergy Verified 01/09/25 06:54 Review of Systems ROS Statement: Those systems with pertinent positive or pertinent negative responses have been documented in the HPI. ROS Other: All systems not noted in ROS Statement are negative. Past Medical History Past Medical History: Cancer, GERD/Reflux Additional Past Medical History / Comment(s): no meds now for gerd History of Any Multi-Drug Resistant Organisms: None Reported Past Surgical History: Joint Replacement, Orthopedic Surgery Additional Past Surgical History / Comment(s): knee rplaced left and hip replaced left, meniscus repair right knee, right foot bunion, right hand carpal tunnel Past Anesthesia/Blood Transfusion Reactions: Postoperative Nausea & Vomiting (PONV) Additional Past Anesthesia/Blood Transfusion Reaction / Comment(s): no blood transfusion Past Psychological History: No Psychological Hx Reported Smoking Status: Never smoker Past Alcohol Use History: None Reported Past Drug Use History: None Reported - Past Family History Mother Family Medical History: Cancer Additional Family Medical History / Comment(s): ovarioan Sister(s) Family Medical History: Cancer Additional Family Medical History / Comment(s): ovarioan, another sister breast , 2 sisters with dvt, sister non hodgkins lymphoma, sister with lymphadenopathy Brother(s) Family Medical History: Cancer Additional Family Medical History / Comment(s): leukemia another brother with dvt, General Exam Limitations: no limitations General appearance: alert, in no apparent distress Head exam: Present: atraumatic, normocephalic, normal inspection Eye exam: Present: normal appearance, PERRL, EOMI. Absent: scleral icterus, conjunctival injection, periorbital swelling ENT exam: Present: normal exam, mucous membranes moist Neck exam: Present: normal inspection. Absent: tenderness, meningismus, lymphadenopathy Respiratory exam: Present: normal lung sounds bilaterally. Absent: respiratory distress, wheezes, rales, rhonchi, stridor Cardiovascular Exam: Present: regular rate, normal rhythm, normal heart sounds. Absent: systolic murmur, diastolic murmur, rubs, gallop, clicks GI/Abdominal exam: Present: soft, normal bowel sounds. Absent: distended, tenderness, guarding, rebound, rigid Extremities exam: Present: normal inspection, full ROM, normal capillary refill. Absent: tenderness, pedal edema, joint swelling, calf tenderness Back exam: Present: normal inspection Neurological exam: Present: alert, oriented X3, CN II-XII intact Psychiatric exam: Present: normal affect, normal mood Skin exam: Present: warm, dry, intact, normal color. Absent: rash Course Vital Signs 01/08/25 01/09/25 01/09/25 20:38 00:18 04:41 Temperature 98.1 F Pulse Rate 95 68 66 Respiratory 18 16 16 Rate Blood Pressure 136/77 107/70 102/70 O2 Sat by Pulse 99 98 Oximetry - Reevaluation(s) Reevaluation #1: 01/08/25 22:12 Medical records reviewed Reevaluation #2: 01/08/25 22:12 Patient has mild persistent vaginal bleeding here in the ER Reevaluation #3: 01/08/25 22:13 Patient informed of results questions answered, patient does not feel comfortable with discharge secondary to unclear path forward in regards to cancer treatment Reevaluation #4: Was pt. sent in by a medical professional or institution (, PA, SUPERVISOR MACHINING, urgent care, hospital, or prison...) When possible be specific @ -no Did you speak to anyone other than the patient for history (EMS, parent, family, police, friend...)? What history was obtained from this source @ -no Did you review nursing and triage notes (agree or disagree)? Why? @ -agree Are old charts reviewed (outside hosp., previous admission, EMS record, old EKG, old radiological studies, urgent care reports/EKG's, prison records)? Report findings @ -yes Differential Diagnosis (chest pain, altered mental status, abdominal pain women, abdominal pain men, vaginal bleeding, weakness, fever, dyspnea, syncope, headache, dizziness, GI bleed, back pain, seizure, CVA, palpatations, mental health, musculoskeletal)? @ -prior EKG interpreted by me (3pts min.). @ -no X-rays interpreted by me (1pt min.). @ -yes CT interpreted by me (1pt min.). @ -no U/S interpreted by me (1pt. min.). @ -no What testing was considered but not performed or refused? (CT, X-rays, U/S, labs)? Why? @ -none What meds were considered but not given or refused? Why? @ -none Did you discuss the management of the patient with other professionals (professionals i.e. , PA, SUPERVISOR MACHINING, lab, RT, psych nurse, nephrology social worker, coating machine feeder, teacher, certification officer, clinical case manager)? Give summary @ -no Was smoking cessation discussed for >3mins.? @ -no Was critical care preformed (if so, how long)? @ -no Were there social determinants of health that impacted care today? How? (Homelessness, low income, unemployed, alcoholism, drug addiction, transportation, low edu. Level, literacy, decrease access to med. care, nursing home, rehab)? @ -none Was there de-escalation of care discussed even if they declined (Discuss DNR or withdrawal of care, Hospice)? DNR status @ -no What co-morbidities impacted this encounter? (DM, HTN, Smoking, COPD, CAD, Cancer, CVA, ARF, Chemo, Hep., AIDS, mental health diagnosis, sleep apnea, morbid obesity)? @ -none Was patient admitted / discharged? Hospital course, mention meds given and route, prescriptions, significant lab abnormalities, going to OR and other pertinent info. @ - 59 female to be admitted for oncology evaluation in regards to cancer treatment and plan with persistent vaginal bleeding Admitted Undiagnosed new problem with uncertain prognosis? @ -no Drug Therapy requiring intensive monitoring for toxicity (Heparin, Nitro, Insulin, Cardizem)? @ -no Were any procedures done? @ -no Diagnosis/symptom? @ -Vaginal bleeding cancer pain Acute, or Chronic, or Acute on Chronic? @ -Acute Uncomplicated (without systemic symptoms) or Complicated (systemic symptoms)? @ -Complicated Side effects of treatment? @ -no Exacerbation, Progression, or Severe Exacerbation? @ -exacerbation Poses a threat to life or bodily function? How? (Chest pain, USA, MT, pneumonia, PE, COPD, DKA, ARF, appy, cholecystitis, CVA, Diverticulitis, Homicidal, Suicidal, threat to staff... and all critical care pts) @ -yes significant cancer burden Reevaluation #5: Differential Abdominal Pain Women: Appendicitis, Cholecystitis, diverticulosis, ischemic bowel, pancreatitis, hepatitis, UTI, gastroenteritis, AAA, incarcerated hernia, bowel obstruction, constipation, inflammatory bowel, hepatitis, peptic ulcer disease, splenic infarction, perforated viscus, vulvitis, ovarian torsion, PID, kidney stone, placenta abruption, this is not meant to be an all-inclusive list Medical Decision Making - Medical Decision Making 59 female to be admitted for oncology evaluation in regards to cancer treatment and plan with persistent vaginal bleeding - Lab Data Result diagrams: 01/12/25 06:24 01/08/25 20:54 Lab Results 01/08/25 01/08/25 01/08/25 Range/Units 20:48 20:53 20:54 WBC 9.37 (4.50-10.00) 10*3/uL RBC 3.78 L (4.10-5.20) 10*6/uL Hgb 10.4 L (12.0-15.0) g/dL Hct 32.0 L (37.2-46.3) % MCV 84.7 (80.0-97.0) fL MCH 27.5 (27.0-32.0) pg MCHC 32.5 (32.0-37.0) g/dL Plt Count 516 H (140-440) 10*3/uL MPV 8.6 L (9.5-12.2) fL Immature Gran % (Auto) 0.4 % Neutrophils % 75.6 % Lymphocytes % 12.8 % Monocytes % 9.3 % Eosinophils % 1.4 % Basophils % 0.5 % Immature Gran # 0.04 (0.00-0.04) 10*3/uL Neutrophils # 7.08 (1.80-7.70) 10*3/uL Lymphocytes # 1.20 (0.90-5.00) 10*3/uL Monocytes # 0.87 (0.20-1.00) 10*3/uL Eosinophils # 0.13 (0.04-0.35) 10*3/uL Basophils # 0.05 (0.00-0.10) 10*3/uL PT (10.0-12.5) sec INR (<1.2) APTT (22.0-30.0) sec Sodium (137-145) mmol/L Potassium (3.5-5.1) mmol/L Chloride (98-107) mmol/L Carbon Dioxide (22-30) mmol/L Anion Gap mmol/L BUN (7-17) mg/dL Creatinine (0.52-1.04) mg/dL Est GFR (CKD-EPI)AfAm (>60 ml/min/1.73 sqM) Est GFR (CKD-EPI)NonAf (>60 ml/min/1.73 sqM) Glucose (74-99) mg/dL Calcium (8.4-10.2) mg/dL Phosphorus (2.5-4.5) mg/dL Magnesium (1.6-2.3) mg/dL Total Bilirubin (0.2-1.3) mg/dL AST (14-36) U/L ALT (4-34) U/L Alkaline Phosphatase (38-126) U/L Troponin I (0.000-0.034) ng/mL Total Protein (6.3-8.2) g/dL Albumin (3.5-5.0) g/dL Blood Type A Positive Blood Type Confirm A Positive Blood Type Recheck No Previous Record Bld Type Recheck Status CABO Indicated Antibody Screen NEGATIVE Spec Expiration Date 01/11/2025235301/08/25 01/08/25 01/08/25 Range/Units 20:54 20:54 20:54 WBC (4.50-10.00) 10*3/uL RBC (4.10-5.20) 10*6/uL Hgb (12.0-15.0) g/dL Hct (37.2-46.3) % MCV (80.0-97.0) fL MCH (27.0-32.0) pg MCHC (32.0-37.0) g/dL Plt Count (140-440) 10*3/uL MPV (9.5-12.2) fL Immature Gran % (Auto) % Neutrophils % % Lymphocytes % % Monocytes % % Eosinophils % % Basophils % % Immature Gran # (0.00-0.04) 10*3/uL Neutrophils # (1.80-7.70) 10*3/uL Lymphocytes # (0.90-5.00) 10*3/uL Monocytes # (0.20-1.00) 10*3/uL Eosinophils # (0.04-0.35) 10*3/uL Basophils # (0.00-0.10) 10*3/uL PT 10.9 (10.0-12.5) sec INR 1.0 (<1.2) APTT 23.0 (22.0-30.0) sec Sodium 131 L (137-145) mmol/L Potassium 4.0 (3.5-5.1) mmol/L Chloride 98 (98-107) mmol/L Carbon Dioxide 23 (22-30) mmol/L Anion Gap 10 mmol/L BUN 8 (7-17) mg/dL Creatinine 0.45 L (0.52-1.04) mg/dL Est GFR (CKD-EPI)AfAm >90 (>60 ml/min/1.73 sqM) Est GFR (CKD-EPI)NonAf >90 (>60 ml/min/1.73 sqM) Glucose 105 H (74-99) mg/dL Calcium 9.8 (8.4-10.2) mg/dL Phosphorus 3.8 (2.5-4.5) mg/dL Magnesium 1.9 (1.6-2.3) mg/dL Total Bilirubin 0.8 (0.2-1.3) mg/dL AST 30 (14-36) U/L ALT 13 (4-34) U/L Alkaline Phosphatase 50 (38-126) U/L Troponin I <0.012 (0.000-0.034) ng/mL Total Protein 6.8 (6.3-8.2) g/dL Albumin 3.9 (3.5-5.0) g/dL Blood Type Blood Type Confirm Blood Type Recheck Bld Type Recheck Status Antibody Screen Spec Expiration Date - EKG Data -: EKG Interpreted by Me (EKG is sinus 83 NV 125 QRS 105 QTc 406) Disposition Clinical Impression: Dysfunctional uterine bleeding, Vaginal bleeding, Abdominal pain, Uterine cancer Disposition: ADMITTED IP TO THIS HOSP Is patient prescribed a controlled substance at d/c from ED?: No Time of Disposition: 22:00
[2025-01-08 21:02] LABS: Basophils # (A) 0.05 10*3/uL (0.00-0.10); Basophils % (A) 0.5 %; Eosinophils # (A) 0.13 10*3/uL (0.04-0.35); Eosinophils % (A) 1.4 %; HGB 10.4 g/dL (12.0-15.0); Lymphocytes % (A) 12.8 %; MCH 27.5 pg (27.0-32.0); MCHC 32.5 g/dL (32.0-37.0); MCV 84.7 fL (80.0-97.0); Mean Platelet Volume 8.6 fL (9.5-12.2); Monocytes # (A) 0.87 10*3/uL (0.20-1.00); Monocytes % (A) 9.3 %; Neutrophils # (A) 7.08 10*3/uL (1.80-7.70); Neutrophils % (A) 75.6 %; Platelet Count 516 10*3/uL (140-440); RBC 3.78 10*6/uL (4.10-5.20); RDW 13.2 % (11.5-14.5); WBC 9.37 10*3/uL (4.50-10.00)
[2025-01-08] MEDS: MORPHINE SULFATE 4 MG/ML SYRINGE IV STA (21:05)
[2025-01-08] MEDS: SODIUM CHLORIDE 0.9% 1,000 ML IV ONE (21:06)
[2025-01-08 21:13] LABS: Prothrombin Time 10.9 sec (10.0-12.5)
[2025-01-08 21:19] LABS: ALT 13 U/L (4-34); AST 30 U/L (14-36); African American GFR (CKD) >90 (>60 ml/min/1.73 sqM); Albumin 3.9 g/dL (3.5-5.0); Alkaline Phosphatase 50 U/L (38-126); Anion Gap 10 mmol/L; Blood Urea Nitrogen 8 mg/dL (7-17); Calcium 9.8 mg/dL (8.4-10.2); Carbon Dioxide 23 mmol/L (22-30); Chloride 98 mmol/L (98-107); Glucose 105 mg/dL (74-99); Magnesium 1.9 mg/dL (1.6-2.3); Non-African American GFR(CKD) >90 (>60 ml/min/1.73 sqM); Phosphorus 3.8 mg/dL (2.5-4.5); Sodium 131 mmol/L (137-145); Total Bilirubin 0.8 mg/dL (0.2-1.3); Total Protein 6.8 g/dL (6.3-8.2)
[2025-01-08] MEDS ORDERED: NALOXONE 0.4 MG/ML 1 ML VIAL IV PRN (22:08)
[2025-01-08] MEDS: SODIUM CHLORIDE 0.9% 1,000 ML IV SCH (23:19)
[2025-01-09] MEDS: MORPHINE SULFATE 4 MG/ML SYRINGE IV PRN (00:23)
[2025-01-09 06:13] LABS: Basophils # (A) 0.05 10*3/uL (0.00-0.10); Basophils % (A) 0.7 %; Eosinophils # (A) 0.14 10*3/uL (0.04-0.35); Eosinophils % (A) 1.8 %; HCT 27.9 % (37.2-46.3); Lymphocytes # (A) 0.91 10*3/uL (0.90-5.00); MCH 28.1 pg (27.0-32.0); MCHC 31.9 g/dL (32.0-37.0); Mean Platelet Volume 8.9 fL (9.5-12.2); Monocytes % (A) 9.2 %; Neutrophils # (A) 5.78 10*3/uL (1.80-7.70); Neutrophils % (A) 75.9 %; Platelet Count 450 10*3/uL (140-440); RBC 3.17 10*6/uL (4.10-5.20); RDW 13.2 % (11.5-14.5); WBC 7.61 10*3/uL (4.50-10.00)
[2025-01-09 06:39] LABS: HGB 8.9 g/dL (12.0-15.0)
[2025-01-09] MEDS: SODIUM FERRIC GLUCONAT-SUCROSE 125 MG in SODIUM CHLORIDE 0.9% 100 ML IVPB SCH (12:14)
[2025-01-09] MEDS: HYDROcodone/APAP 5-325MG 1 EACH TAB PO SCH (12:14)
[2025-01-09] MEDS: IOPAMIDOL CONTRAST (ORAL USE) VIAL PO PRN (14:34)
[2025-01-09 16:03] LABS: Ferritin 77.5 ng/mL (10.0-291.0); Iron 42 UG/DL (50-170); Total Iron Binding Capacity 311 UG/DL (228-460)
--- NOTE | 2025-01-09 16:03 | P.HPIM ---
History of Present Illness H&P Date: 01/09/25 Chief Complaint: Vaginal bleeding Pleasant 59-year-old patient, follows with Dr. Milton Small. Patient in August of this year 2024 was diagnosed with endometrial cancer by , out of [facility]. A D&C was carried out. Patient was diagnosed with endometrial cancer was sent to Dr. Anguiano oncology gynecology. Out of [facility]. He did a PET scan in October. And he felt it was beyond his skill set to do any intervention. Patient denied did not to follow-up with the same. Since then no further follow-up is happened. Patient continues to have vaginal bleeding off-and-on. Now more so the last 24 hours. Some blood clots. Also lower abdominal cramping. Appetite is fair. No change in bowel pattern. As they did not wish for her to go to the decided to come to the ER. Patient had some blood clots last night. Admission hemoglobin was 10.4. This morning 8.9. Patient's is at bedside. Review of systems: GEN.: Tired EYES: None HEENT: None NECK: None RESPIRATORY: None CARDIOVASCULAR: None GASTROINTESTINAL: Lower abdominal cramping e GENITOURINARY: Vaginal bleeding with some clots MUSCULOSKELETAL: [Arthritic pain in the joints LYMPHATICS: None HEMATOLOGICAL: None PSYCHIATRY: None NEUROLOGICAL: None Social history: No smoking no alcohol. Lives with her . Physical examination: VITAL SIGNS: 97.8, 92, 16, 126 x 75, 96% room air GENERAL: BMI 22, resting bed awake. EYES: Pupils equal. Conjunctiva jennifer l. HEENT: External appearance of nose and ears normal, oral cavity grossly normal. NECK: JVD not raised; masses not palpable. HEART: First and second heart sounds are normal; no edema. LUNGS: Respiratory rate normal; clear to auscultation. ABDOMEN: Soft, mild suprapubic tenderness, liver spleen not palpable, no masses palpable. PSYCH: Alert and oriented x3; mood and affect a bit anxious l. MUSCULOSKELETAL:No Clubbing/cyanosis;muscles-grossly intact. Some OA of the joints NEUROLOGICAL: Cranial nerves grossly intact; no facial asymmetry, power and sensation grossly intact. LYMPHATICS: No lymph nodes palpable in the axilla and neck INVESTIGATIONS, reviewed in the clinical context: January 09, 2025: White count 7.1 hemoglobin 8.9 platelets 450 January 08: White count 9.3 hemoglobin 10.4 platelets 516 sodium 131 creatinine 0.45 Assessment and plan: - Acute on chronic severe uterine bleeding the patient known endometrial cancer. Patient did have some significant blood clots last night. Patient's had D&C in August. Had also follow-up with Dr. Moreno out of [facility]. Did have a PET scan. Was not able to do any further intervention. Patient looking for further guidance in terms of her endometrial cancer treatment. Consultation to oncology Dr. Pal Barnard Consultation to Dr. Guaman from gynecology For pelvic cramping will use K-pad patient already on Uehling. - Acute blood loss anemia from recurrent vaginal bleeding Follow H&H. IV Ferrlecit - Primary osteoarthritis Uehling 5 Care was discussed with patient . Await input from gynecology and oncology. Past Medical History Past Medical History: Cancer, GERD/Reflux Additional Past Medical History / Comment(s): no meds now for gerd History of Any Multi-Drug Resistant Organisms: None Reported Past Surgical History: Joint Replacement, Orthopedic Surgery Additional Past Surgical History / Comment(s): knee rplaced left and hip replaced left, meniscus repair right knee, right foot bunion, right hand carpal tunnel Past Anesthesia/Blood Transfusion Reactions: Postoperative Nausea & Vomiting (PONV) Additional Past Anesthesia/Blood Transfusion Reaction / Comment(s): no blood transfusion Past Psychological History: No Psychological Hx Reported Smoking Status: Never smoker Past Alcohol Use History: None Reported Past Drug Use History: None Reported - Past Family History Mother Family Medical History: Cancer Additional Family Medical History / Comment(s): ovarioan Sister(s) Family Medical History: Cancer Additional Family Medical History / Comment(s): ovarioan, another sister breast , 2 sisters with dvt, sister non hodgkins lymphoma, sister with lymphadenopathy Brother(s) Family Medical History: Cancer Additional Family Medical History / Comment(s): leukemia another brother with dvt, Medications and Allergies Home Medications Medication Instructions Recorded Confirmed Type HYDROcodone/APAP 5-325MG [Uehling 1 tab PO TID 01/09/25 01/09/25 History 5-325] Allergies Allergy/AdvReac Type Severity Reaction Status Date / Time No Known Allergies Allergy Verified 01/09/25 06:54 Physical Exam Vitals: Vital Signs Temp Pulse Pulse Resp BP BP Pulse Ox 01/09/25 08:00 97.8 F 92 16 126/75 96 01/09/25 04:41 66 16 102/70 01/09/25 00:18 68 16 107/70 98 01/08/25 20:38 98.1 F 95 18 136/77 99 Intake and Output 01/08/25 01/09/25 01/09/25 22:59 06:59 14:59 Intake Total 240 Balance 240 Intake: Oral 240 Other: Weight 65.771 kg Results CBC & Chem 7: 01/09/25 05:37 01/08/25 20:54 Labs: Abnormal Lab Results - Last 24 Hours (Table) 01/08/25 01/08/25 01/09/25 Range/Units 20:54 20:54 05:37 RBC 3.78 L 3.17 L (4.10-5.20) 10*6/uL Hgb 10.4 L 8.9 L D (12.0-15.0) g/dL Hct 32.0 L 27.9 L (37.2-46.3) % MCHC 31.9 L (32.0-37.0) g/dL Plt Count 516 H 450 H (140-440) 10*3/uL MPV 8.6 L 8.9 L (9.5-12.2) fL Sodium 131 L (137-145) mmol/L Creatinine 0.45 L (0.52-1.04) mg/dL Glucose 105 H (74-99) mg/dL
[2025-01-09 16:32] LABS: Vitamin B12 >3600.0 pg/mL (200.0-944.0)
--- NOTE | 2025-01-09 16:41 | CT ---
EXAMINATION TYPE: CT ChestAbdPelvis w con DATE OF EXAM: 01/09/2025 COMPARISON: None CLINICAL INDICATION: Female, 59 years old with history of endometrial cancer, staging CT DLP: 630.9 mGycm Automated exposure control for dose reduction was used. CONTRAST: CT scan of the chest, abdomen and pelvis is performed with Oral Contrast and with IV Contrast, patien t injected with 100 mL of Isovue 300. FINDINGS: CT chest: There is no suspicious lung mass or nodule. There is no airspace consolidation. There is mild fine interstitial scarring in the right lung base. There is no pleural effusion, pleural thickening or pneumothorax. The great vessels and chest are normal there is no mediastinal, hilar or axillary adenopathy. No focal osseous lesions are seen. CT abdomen and pelvis: Gallbladder is normal without distention, pericholecystic fluid, wall thickening or gallstone. There is no biliary ductal dilatation. There is no focal mass or organomegaly involving the liver, pancreas, spleen or adrenal glands. There are 3 small cysts within the liver. There is no solid renal mass or hydronephrosis. Caliber of the abdominal aorta is normal. There is marked retroperitoneal periaortic lymphadenopathy. The largest node is approximately 4.4 cm. There is a second node is approximately 4.2 cm. There is a 3.1 cm aortocaval node. The bowel loops are normal in caliber and there is no dilatation or obstruction. No inflammatory bean ges identified in the bowel wall and mesentery. There is no free intracranial air or fluid. Evaluation is limited due to streak artifact from the left hip prosthesis but the intrauterine cavity appears enlarged and heterogeneous consistent with the history of endometrial cancer 12 mm sclerotic density in the superior posterior aspect of L3 raising the suspicion for bone metastasis. Bone scan would be useful for further evaluation. IMPRESSION: 1. Distended and heterogeneous uterine cavity consistent with history of endometrial cancer. 2 marked retroperitoneal adenopathy as described above. 3. Sclerotic bone lesion in L3 suspicious for bone metastasis. Bone scan would be useful for further evaluation. 4. No evidence of metastatic disease within the thorax. [facility], , 01/09/2025 4:39 PM
--- NOTE | 2025-01-09 17:00 | P.OBCN ---
<Georgia Powell - Last Filed: 01/09/25 16:57> History of Present Illness Consult date: 01/09/25 Chief complaint: abnormal uterine bleeding History of present illness: Patient is a 59-year-old 0 female with history of endometrial CA for whom we were consulted on due to abnormal uterine bleeding. Yesterday evening around 1800 she began having large amounts of vaginal bleeding and passing large clots, came to the ER around 1999. She has previously needed approximately 1 pad per day but yesterday was "soaking through towels" at the time. Today her bleeding has been less but still persistent. Patient states that summer 2023 she began having intermittent spotting, "believed it was part of menopause." The bleeding worsened in June 2024 and developed muscle aches at that time. She saw her PCP and found out her CA125 was elevated in July. She was having difficulty finding gynecology/gynecology-oncology but underwent a D&C in August and was diagnosed with endometrial CA. She was referred to Dr. Anguiano for gynecology-oncology, received a PET scan (she is unsure of the results), and Dr. Anguiano was unable to continue seeing the patient. She has been seeing a functional medicine physician who has been treating her for a M[place]am blood infection with a 6-month regimen of antifungals. She has a strong family history of CA including: Mom and sisterovarian CA, sisterbreast CA, sisterNon-Hodgkin lymphoma, brotherleukemia. She reports significant weight loss and decreased appetite over the last few months. Reports suprapubic pain and vaginal bleeding. Denies fever/chills, chest pain, difficulty breathing. Review of Systems ROS reviewed. Pertinent positives and negatives discussed above, a complete review of systems was performed and all the other systems were negative. Past Medical History Past Medical History: Cancer, GERD/Reflux Additional Past Medical History / Comment(s): no meds now for gerd History of Any Multi-Drug Resistant Organisms: None Reported Past Surgical History: Joint Replacement, Orthopedic Surgery Additional Past Surgical History / Comment(s): knee rplaced left and hip replaced left, meniscus repair right knee, right foot bunion, right hand carpal tunnel Past Anesthesia/Blood Transfusion Reactions: Postoperative Nausea & Vomiting (PONV) Additional Past Anesthesia/Blood Transfusion Reaction / Comm: no blood transfusion Past Psychological History: No Psychological Hx Reported Smoking Status: Never smoker Past Alcohol Use History: None Reported Past Drug Use History: None Reported - Past Family History Mother Family Medical History: Cancer Additional Family Medical History / Comment(s): ovarioan Sister(s) Family Medical History: Cancer Additional Family Medical History / Comment(s): ovarioan, another sister breast , 2 sisters with dvt, sister non hodgkins lymphoma, sister with lymphadenopathy Brother(s) Family Medical History: Cancer Additional Family Medical History / Comment(s): leukemia another brother with dvt, Medications and Allergies Home Medications Medication Instructions Recorded Confirmed Type HYDROcodone/APAP 5-325MG [[place] 1 tab PO TID 01/09/25 01/09/25 History 5-325] Allergies Allergy/AdvReac Type Severity Reaction Status Date / Time No Known Allergies Allergy Verified 01/09/25 06:54 Exam Vital Signs Temp Pulse Pulse Resp BP BP Pulse Ox 01/09/25 08:00 97.8 F 92 16 126/75 96 01/09/25 04:41 66 16 102/70 01/09/25 00:18 68 16 107/70 98 01/08/25 20:38 98.1 F 95 18 136/77 99 Intake and Output 01/08/25 01/09/25 01/09/25 22:59 06:59 14:59 Intake Total 240 Balance 240 Intake: Oral 240 Other: Weight 65.771 kg Vital signs are stable. General: AOx4. Patient appears uncomfortable sitting in bed due to pain. Lungs: Bilateral breath sounds present; no rhonchi, wheezes, or rales. Heart: Rate and rhythm are regular. S1-S2 present. No murmur/rub/gallops. Abdomen: Soft, suprapubic tenderness. Bowel sounds present. Extremities: No edema present. Symmetric movement. Psych: Normal affect and mood. Cooperative. Results Result Diagrams: 01/09/25 05:37 01/08/25 20:54 Abnormal Lab Results - Last 24 Hours (Table) 01/08/25 01/08/25 01/09/25 Range/Units 20:54 20:54 05:37 RBC 3.78 L 3.17 L (4.10-5.20) 10*6/uL Hgb 10.4 L 8.9 L D (12.0-15.0) g/dL Hct 32.0 L 27.9 L (37.2-46.3) % MCHC 31.9 L (32.0-37.0) g/dL Plt Count 516 H 450 H (140-440) 10*3/uL MPV 8.6 L 8.9 L (9.5-12.2) fL Sodium 131 L (137-145) mmol/L Creatinine 0.45 L (0.52-1.04) mg/dL Glucose 105 H (74-99) mg/dL Assessment and Plan Assessment: Patient is a 59-year-old 0 female with history of endometrial CA for whom we were consulted on due to abnormal uterine bleeding. (1) Endometrial cancer Current Visit: Yes Status: Acute Code(s): C54.1 - MALIGNANT NEOPLASM OF ENDOMETRIUM SNOMED Code(s): 488114525 (2) Dysfunctional uterine bleeding Current Visit: Yes Status: Acute Code(s): N93.8 - OTHER SPECIFIED ABNORMAL UTERINE AND VAGINAL BLEEDING SNOMED Code(s): 20901087171237 (3) Vaginal bleeding Current Visit: Yes Status: Acute Code(s): N93.9 - ABNORMAL UTERINE AND VAGINAL BLEEDING, UNSPECIFIED SNOMED Code(s): 266766889 Plan: - Oncology consulted - Consider megestrol acetate for bleeding secondary to uterine CA - No additional gynecologic interventions at this time Thank you for the consultation. We will sign off at this time. <Mckenzie Harry S - Last Filed: 01/10/25 09:24> Exam Osteopathic Statement: *. No significant issues noted on an osteopathic structural exam other than those noted in the History and Physical/Consult. Vital Signs Temp Pulse Pulse Resp BP BP Pulse Ox 01/09/25 12:34 98.1 F 85 16 126/75 99 01/09/25 08:00 97.8 F 92 16 126/75 96 01/09/25 04:41 66 16 102/70 01/09/25 00:18 68 16 107/70 98 01/08/25 20:38 98.1 F 95 18 136/77 99 Intake and Output 01/09/25 01/09/25 01/09/25 06:59 14:59 22:59 Intake Total 480 Balance 480 Intake: Oral 480 Other: Weight 65.771 kg Results Result Diagrams: 01/10/25 05:24 01/08/25 20:54 Abnormal Lab Results - Last 24 Hours (Table) 01/08/25 01/08/25 01/09/25 Range/Units 20:54 20:54 05:37 RBC 3.78 L 3.17 L (4.10-5.20) 10*6/uL Hgb 10.4 L 8.9 L D (12.0-15.0) g/dL Hct 32.0 L 27.9 L (37.2-46.3) % MCHC 31.9 L (32.0-37.0) g/dL Plt Count 516 H 450 H (140-440) 10*3/uL MPV 8.6 L 8.9 L (9.5-12.2) fL Sodium 131 L (137-145) mmol/L Creatinine 0.45 L (0.52-1.04) mg/dL Glucose 105 H (74-99) mg/dL Iron (50-170) UG/DL Vitamin B12 (200.0-944.0) pg/mL 01/09/25 Range/Units 05:37 RBC (4.10-5.20) 10*6/uL Hgb (12.0-15.0) g/dL Hct (37.2-46.3) % MCHC (32.0-37.0) g/dL Plt Count (140-440) 10*3/uL MPV (9.5-12.2) fL Sodium (137-145) mmol/L Creatinine (0.52-1.04) mg/dL Glucose (74-99) mg/dL Iron 42 L (50-170) UG/DL Vitamin B12 >3600.0 H (200.0-944.0) pg/mL Assessment and Plan Plan: pt seen by myself after Dr Powell plan discussed from a general break out man standpoint there isnt anything I can offer could consider megace for bleeding but defer to oncology
--- NOTE | 2025-01-09 20:56 | P.CONS ---
History of Present Illness - Reason for Consult Consult date: 01/09/25 endometrial cancer Requesting physician: Ray Wong - Chief Complaint vaginal bleeding - History of Present Illness Patient is a 59-year-old female with a history of endometrial cancer. Upon review patient presented the emergency room for complaints of increasing vaginal bleeding. Yesterday she states vaginal bleeding began to increase and was passing large amounts of blood with clots. This has been an ongoing intermittent issue for the last 6 months. Pelvic ultrasound on 08/17/2024 showed suspected fluid collection in the fundus likely within the endometrial canal. There is some irregular thickening. Mason tabares Upon review of EMR blank. Patient has since followed up with gynecological oncology at [facility] with Dr. Anguiano. She underwent D&C on 08/30/2024 which revealed high-grade endometrial adenocarcinoma. PET/CT on 11/08/2024 showed intense abnormal radiotracer uptake within the endometrial canal. Hypermetabolic metastatic lymphadenopathy within chest abdomen and pelvis. Patient was not felt to be a surgical candidate was recommended to undergo chemotherapy and and radiation. She was referred to [facility] for radiation. However patient has not followed up with radiation or underwent chemotherapy at this time. She states since she has been seen by a functional medicine doctor and has been diagnosed with systemic candidiasis and has been on antifungal treatment for the last 6 weeks. She discontinued medication due to adverse side effects. She was recommended to undergo 6 months of treatment. Review of Systems 10 point ROS is negative except as stated in the HPI Past Medical History Past Medical History: Cancer, GERD/Reflux Additional Past Medical History / Comment(s): no meds now for gerd History of Any Multi-Drug Resistant Organisms: None Reported Past Surgical History: Joint Replacement, Orthopedic Surgery Additional Past Surgical History / Comment(s): knee rplaced left and hip replaced left, meniscus repair right knee, right foot bunion, right hand carpal tunnel Past Anesthesia/Blood Transfusion Reactions: Postoperative Nausea & Vomiting (PONV) Additional Past Anesthesia/Blood Transfusion Reaction / Comm: no blood transfusion Past Psychological History: No Psychological Hx Reported Smoking Status: Never smoker Past Alcohol Use History: None Reported Past Drug Use History: None Reported - Past Family History Mother Family Medical History: Cancer Additional Family Medical History / Comment(s): ovarioan Sister(s) Family Medical History: Cancer Additional Family Medical History / Comment(s): ovarioan, another sister breast , 2 sisters with dvt, sister non hodgkins lymphoma, sister with lymphadenopathy Brother(s) Family Medical History: Cancer Additional Family Medical History / Comment(s): leukemia another brother with dvt, Medications and Allergies Home Medications Medication Instructions Recorded Confirmed Type HYDROcodone/APAP 5-325MG [[place] 1 tab PO TID 01/09/25 01/09/25 History 5-325] Allergies Allergy/AdvReac Type Severity Reaction Status Date / Time No Known Allergies Allergy Verified 01/09/25 06:54 Physical Exam Vitals: Vital Signs Temp Pulse Pulse Resp BP BP Pulse Ox 01/09/25 12:34 98.1 F 85 16 126/75 99 01/09/25 08:00 97.8 F 92 16 126/75 96 01/09/25 04:41 66 16 102/70 01/09/25 00:18 68 16 107/70 98 01/08/25 20:38 98.1 F 95 18 136/77 99 Intake and Output 01/08/25 01/09/25 01/09/25 22:59 06:59 14:59 Intake Total 240 Balance 240 Intake: Oral 240 Other: Weight 65.771 kg - Constitutional General appearance: average body habitus, no acute distress - EENT Eyes: anicteric sclerae, EOMI ENT: hearing grossly normal - Respiratory breathing is even and unlabored - Cardiovascular well perfused - Gastrointestinal General gastrointestinal: soft, no tenderness - Integumentary Integumentary: no cyanotic, no jaundiced - Psychiatric Psychiatric: A&O x's 3 Results CBC & Chem 7: 01/09/25 05:37 01/08/25 20:54 Labs: Abnormal Lab Results - Last 24 Hours (Table) 01/08/25 01/08/25 01/09/25 Range/Units 20:54 20:54 05:37 RBC 3.78 L 3.17 L (4.10-5.20) 10*6/uL Hgb 10.4 L 8.9 L D (12.0-15.0) g/dL Hct 32.0 L 27.9 L (37.2-46.3) % MCHC 31.9 L (32.0-37.0) g/dL Plt Count 516 H 450 H (140-440) 10*3/uL MPV 8.6 L 8.9 L (9.5-12.2) fL Sodium 131 L (137-145) mmol/L Creatinine 0.45 L (0.52-1.04) mg/dL Glucose 105 H (74-99) mg/dL Comments: PET CT, pelvic US reviewed Assessment and Plan (1) Endometrial cancer Current Visit: Yes Status: Acute Priority: High Code(s): C54.1 - MALIGNANT NEOPLASM OF ENDOMETRIUM SNOMED Code(s): 652085233 (2) Vaginal bleeding Current Visit: Yes Status: Acute Priority: High Code(s): N93.9 - ABNORMAL UTERINE AND VAGINAL BLEEDING, UNSPECIFIED SNOMED Code(s): 285896358 Plan: Endometrial cancer: Presented for vaginal bleeding, this has been intermittent x 6 months, but worsened yesterday with clotting -Oncology history as dictated in the HPI. Previously seen by Dr. Anguiano at [facility] -PET/CT on 11/08/2024 showed intense abnormal radiotracer uptake within the endometrial canal. Hypermetabolic metastatic lymphadenopathy within chest abdomen and pelvis. Patient was not felt to be a surgical candidate was recommended to undergo chemotherapy and radiation. She was referred to [facility] for radiation. However patient has not followed up with radiation or underwent chemotherapy at this time. . CA 125 on 12/19/24 405. Will repeat CA 125 - CT CAP ordered for restaging - Rad onc consulted. Case discussed with Estrada Quintanilla - Records requested from [facility]. NGS/PDL-1 will be requested on pathology Plan of care discussed with pt and . All questions and concerns addressed Normocytic anemia: -Hgb 8.9 on admit. Upon review of EMR, previously in the 13 range -Anemia labs obtained -Continue to monitor CBC 45 minutes spent with pt and coordination of care
[2025-01-10 06:04] LABS: Basophils # (A) 0.05 10*3/uL (0.00-0.10); Basophils % (A) 0.7 %; Eosinophils # (A) 0.17 10*3/uL (0.04-0.35); Eosinophils % (A) 2.4 %; HCT 28.1 % (37.2-46.3); HGB 8.8 g/dL (12.0-15.0); Lymphocytes # (A) 1.06 10*3/uL (0.90-5.00); Lymphocytes % (A) 14.8 %; MCH 27.6 pg (27.0-32.0); MCHC 31.3 g/dL (32.0-37.0); MCV 88.1 fL (80.0-97.0); Mean Platelet Volume 8.8 fL (9.5-12.2); Monocytes # (A) 0.61 10*3/uL (0.20-1.00); Monocytes % (A) 8.5 %; Neutrophils # (A) 5.26 10*3/uL (1.80-7.70); Neutrophils % (A) 73.2 %; Platelet Count 485 10*3/uL (140-440); RBC 3.19 10*6/uL (4.10-5.20); RDW 13.3 % (11.5-14.5); WBC 7.18 10*3/uL (4.50-10.00)
[2025-01-10] MEDS: MORPHINE SULFATE 2 MG/ML SYRINGE IVP PRN (09:18)
[2025-01-10] MEDS: MORPHINE SULFATE 4 MG/ML SYRINGE IVP STA (11:49)
[2025-01-10 12:48] VITALS: BMI 22.0
--- NOTE | 2025-01-10 14:49 | P.PN ---
Progress Note - Text Progress Note Date: 01/10/25 Chief Complaint: Vaginal bleeding Pleasant 59-year-old patient, follows with Dr. Milton Small. Patient in August of this year 2024 was diagnosed with endometrial cancer by , out of [facility] X. A D&C was carried out. Patient was diagnosed with endometrial cancer was sent to Dr. Anguiano oncology gynecology. Out of [facility]. He did a PET scan in October. And he felt it was beyond his skill set to do any intervention. Patient denied did not to follow-up with the same. Since then no further follow-up is happened. Patient continues to have vaginal bleeding off-and-on. Now more so the last 24 hours. Some blood clots. Also lower abdominal cramping. Appetite is fair. No change in bowel pattern. As they did not wish for her to go to the decided to come to the ER. Patient had some blood clots last night. Admission hemoglobin was 10.4. This morning 8.9. Patient's is at bedside. January 10: Patient having increasing abdominal cramping earlier today. Was put on IV morphine per oncology team. Radiation oncology been consulted to see if they will be any help with the same. Per gynecology nothing else to be done currently. Spoke to the at the bedside Daily Active Medications Hydrocodone Bitart/Acetaminophen (Hydrocodone/Apap 5-325mg 1 Each Tab) 1 each PO TID [facility] Last Admin: 01/10/25 08:45 Dose: 1 each Ferric Sodium Gluconate 125 mg (/ Sodium Chloride) 110 mls @ 100 mls/hr IVPB DAILY [facility] Last Admin: 01/10/25 08:45 Dose: 100 mls/hr Morphine Sulfate (Morphine Sulfate 2 Mg/Ml Syringe) 2 mg IVP Q4HR PRN PRN Reason: Pain/Discomfort Last Admin: 01/10/25 09:18 Dose: 2 mg Naloxone HCl (Naloxone 0.4 Mg/Ml 1 Ml Vial) 0.2 mg IV Q2M PRN PRN Reason: Opioid Reversal Social history: No smoking no alcohol. Lives with her . Physical examination: VITAL SIGNS: 98.4, 88, 18, 103 x 67, 96% room GENERAL: BMI 22, resting in bed EYES: Pupils equal. Conjunctiva jennifer l. HEENT: External appearance of nose and ears normal, oral cavity grossly normal. NECK: JVD not raised; masses not palpable. HEART: First and second heart sounds are normal; no edema. LUNGS: Respiratory rate normal; clear to auscultation. ABDOMEN: Soft, mild suprapubic tenderness, liver spleen not palpable, no masses palpable. PSYCH: Alert and oriented x3; mood and affect a bit anxious l. MUSCULOSKELETAL:No Clubbing/cyanosis;muscles-grossly intact. Some OA of the j oints INVESTIGATIONS, reviewed in the clinical context: January 10: White count 7.1 hemoglobin 8.8 platelets 45 January 09, 2025: White count 7.1 hemoglobin 8.9 platelets 450 January 08: White count 9.3 hemoglobin 10.4 platelets 516 sodium 131 creatinine 0.45 Assessment and plan: - Acute on chronic severe uterine bleeding the patient known endometrial cancer. Patient did have some significant blood clots last night. Patient's had D&C in August. Had also follow-up with Dr. Moreno out of [facility]. Did have a PET scan. Was not able to do any further intervention. Patient looking for further guidance in terms of her endometrial cancer treatment. Being followed by oncology Dr. Pal Barnard Seen by [facility]: 4 megestrol l possibly from bleeding For pelvic cramping will use K-pad patient already on [place]. Await input from radiation oncology - Acute blood loss anemia from recurrent vaginal bleeding Follow H&H. IV Ferrlecit - Primary osteoarthritis [place] 5 Discussed with the . Await input from radiation oncology Past Medical History Past Medical History: Cancer, GERD/Reflux Additional Past Medical History / Comment(s): no meds now for gerd History of Any Multi-Drug Resistant Organisms: None Reported Past Surgical History: Joint Replacement, Orthopedic Surgery Additional Past Surgical History / Comment(s): knee rplaced left and hip replaced left, meniscus repair right knee, right foot bunion, right hand carpal tunnel Past Anesthesia/Blood Transfusion Reactions: Postoperative Nausea & Vomiting (PONV) Additional Past Anesthesia/Blood Transfusion Reaction / Comment(s): no blood transfusion Past Psychological History: No Psychological Hx Reported Smoking Status: Never smoker Past Alcohol Use History: None Reported Past Drug Use History: None Reported
--- NOTE | 2025-01-10 16:26 | P.CONS ---
History of Present Illness - Reason for Consult Consult date: 01/10/25 - Chief Complaint vaginal bleeding - History of Present Illness Moraima is a 59 years old female who recently diagnosed with endometrial cancer when she presented with vaginal bleeding. It was found early this year , she had irregular mass and thickening in the endometrium, D&C was done and showed endometrial adenocarcinoma poorly differentiated, her PET scan and staging workup showed metastatic lymphadenopathy , the patient was not a good candidate for surgery therefore it was recommended for her to undergo concurrent chemo and radiation. The patient did not follow-up with the recommendation . she was admitted due to active vaginal bleeding and intractable pain in the abdomen and pelvis, her hemoglobin is below 10 and she has been monitored for CBCs since the admission Review of Systems Constitutional: Reports as per HPI Ears, nose, mouth and throat: Reports as per HPI Cardiovascular: Reports as per HPI Respiratory: Reports as per HPI Gastrointestinal: Reports as per HPI, Reports abdominal pain, Reports change in bowel habits Genitourinary: Reports as per HPI, Reports abnormal vaginal bleeding, Reports flank pain, Reports hematuria, Reports pelvic pain Musculoskeletal: Reports as per HPI Integumentary: Reports as per HPI Neurological: Reports as per HPI Psychiatric: Reports as per HPI Hematologic/Lymphatic: Reports as per HPI Allergic/Immunologic: Reports as per HPI Past Medical History Past Medical History: Cancer, GERD/Reflux Additional Past Medical History / Comment(s): no meds now for gerd History of Any Multi-Drug Resistant Organisms: None Reported Past Surgical History: Joint Replacement, Orthopedic Surgery Additional Past Surgical History / Comment(s): knee rplaced left and hip replaced left, meniscus repair right knee, right foot bunion, right hand carpal tunnel Past Anesthesia/Blood Transfusion Reactions: Postoperative Nausea & Vomiting (PONV) Additional Past Anesthesia/Blood Transfusion Reaction / Comm: no blood transfusion Past Psychological History: No Psychological Hx Reported Smoking Status: Never smoker Past Alcohol Use History: None Reported Past Drug Use History: None Reported - Past Family History Mother Family Medical History: Cancer Additional Family Medical History / Comment(s): ovarioan Sister(s) Family Medical History: Cancer Additional Family Medical History / Comment(s): ovarioan, another sister breast , 2 sisters with dvt, sister non hodgkins lymphoma, sister with lymphadenopathy Brother(s) Family Medical History: Cancer Additional Family Medical History / Comment(s): leukemia another brother with dvt, Medications and Allergies Home Medications Medication Instructions Recorded Confirmed Type HYDROcodone/APAP 5-325MG [[place] 1 tab PO TID 01/09/25 01/09/25 History 5-325] Allergies Allergy/AdvReac Type Severity Reaction Status Date / Time No Known Allergies Allergy Verified 01/09/25 06:54 Physical Exam Vitals: Vital Signs Temp Pulse Resp BP Pulse Ox 01/10/25 14:00 98.4 F 88 18 103/67 96 01/10/25 08:00 78 18 01/10/25 07:12 97.9 F 78 18 113/73 100 01/10/25 01:22 97.7 F 83 19 107/70 98 01/09/25 18:50 97.7 F 84 17 113/79 95 Intake and Output 01/10/25 01/10/25 01/10/25 06:59 14:59 22:59 Intake Total 600 Output Total 2 Balance 600 -2 Intake: Oral 600 Output: Stool 2 Other: # Bowel Movements 1 Weight 65.771 kg - Constitutional General appearance: mild distress - EENT Eyes: PERRLA - Neck Neck: normal ROM - Respiratory Respiratory: bilateral: CTA - Neurologic Neurologic: CNII-XII intact - Musculoskeletal Musculoskeletal: generalized weakness - Psychiatric Psychiatric: A&O x's 3, appropriate affect, intact judgment & insight Results CBC & Chem 7: 01/10/25 05:24 01/08/25 20:54 Labs: Abnormal Lab Results - Last 24 Hours (Table) 01/09/25 01/09/25 01/09/25 Range/Units 05:37 05:37 05:37 RBC (4.10-5.20) 10*6/uL Hgb (12.0-15.0) g/dL Hct (37.2-46.3) % MCHC (32.0-37.0) g/dL Plt Count (140-440) 10*3/uL MPV (9.5-12.2) fL CA 125 Antigen 407.0 H (0.0-30.1) U/mL Vitamin B12 >3600.0 H (200.0-944.0) pg/mL RBC Folate 855 H (280 - 791) ng/mL 01/10/25 Range/Units 05:24 RBC 3.19 L (4.10-5.20) 10*6/uL Hgb 8.8 L (12.0-15.0) g/dL Hct 28.1 L (37.2-46.3) % MCHC 31.3 L (32.0-37.0) g/dL Plt Count 485 H (140-440) 10*3/uL MPV 8.8 L (9.5-12.2) fL CA 125 Antigen (0.0-30.1) U/mL Vitamin B12 (200.0-944.0) pg/mL RBC Folate (280 - 791) ng/mL Assessment and Plan Assessment: Stage IV advanced high-grade endometrial carcinoma, presented with active vagina l bleeding and intractable abdominal and pelvis pain Plan: The patient is not a candidate for surgery , therefore we recommend a course of external beam radiation therapy to control bleeding and pain. I talked to the patient about the rationale, the technique, and the potential, acute and late side effects of radiotherapy to the pelvis and abdomen. We are planning to do simulation supervisor particleboard tomorrow to start radiotherapy in the afternoon for 15 sessions.
[2025-01-10] MEDS ORDERED: ALPRAZolam 0.5 MG TAB PO STA (16:36)
[2025-01-10] MEDS: MORPHINE SULFATE 4 MG/ML SYRINGE IVP PRN (16:56)
[2025-01-10] MEDS: HYDROcodone/APAP 5-325MG 1 EACH TAB PO PRN (20:18)
--- NOTE | 2025-01-10 20:32 | P.PN ---
Subjective Progress Note Date: 01/10/25 Pt having significant lower abd/pelvic pain at todays visit. Pain meds adjusted. Reports increased vaginal bleeding with clots this morning. Hgb stable 8.8 Objective - Vital Signs Vital signs: Vital Signs Temp 98.4 F 01/10/25 14:00 Pulse 88 01/10/25 14:00 Resp 18 01/10/25 14:00 BP 103/67 01/10/25 14:00 Pulse Ox 96 01/10/25 14:00 FiO2 Intake & Output 01/09/25 01/10/25 01/10/25 18:59 06:59 18:59 Intake Total 1979 1200 Output Total 3 2 Balance 1979 1197 -2 Weight 65.771 kg 65.771 kg Intake: Oral 1979 1200 Output: Stool 3 2 Other: # Voids 5 # Bowel Movements 1 1 - Constitutional General appearance: Present: mild distress - EENT Eyes: Present: anicteric sclerae, EOMI ENT: Present: hearing grossly normal - Respiratory Details: breathing is even and unlabored - Cardiovascular Details: skin warm and dry - Integumentary Integumentary: Absent: cyanotic, jaundiced - Psychiatric Psychiatric: Present: A&O x's 3 - Labs CBC & Chem 7: 01/10/25 05:24 01/08/25 20:54 Labs: Abnormal Lab Results - Last 24 Hours (Table) 01/09/25 01/09/25 01/10/25 Range/Units 05:37 05:37 05:24 RBC 3.19 L (4.10-5.20) 10*6/uL Hgb 8.8 L (12.0-15.0) g/dL Hct 28.1 L (37.2-46.3) % MCHC 31.3 L (32.0-37.0) g/dL Plt Count 485 H (140-440) 10*3/uL MPV 8.8 L (9.5-12.2) fL CA 125 Antigen 407.0 H (0.0-30.1) U/mL RBC Folate 855 H (280 - 791) ng/mL - Imaging and Cardiology CT scan - abdomen: report reviewed CT scan - chest: report reviewed CT scan - pelvis: report reviewed Assessment and Plan (1) Endometrial cancer Current Visit: Yes Status: Acute Priority: High Code(s): C54.1 - MALIGNANT NEOPLASM OF ENDOMETRIUM SNOMED Code(s): 024440173 (2) Vaginal bleeding Current Visit: Yes Status: Acute Priority: High Code(s): N93.9 - ABNORMAL UTERINE AND VAGINAL BLEEDING, UNSPECIFIED SNOMED Code(s): 763436886 (3) Abdominal pain Current Visit: Yes Status: Acute Priority: High Code(s): R10.9 - UNSPECIFIED ABDOMINAL PAIN SNOMED Code(s): 25849278 Plan: Endometrial cancer: Presented for vaginal bleeding and abdominal pain, this has been intermittent x 6 months, but has recently began to worsen -Oncology history as dictated in the HPI. Previously seen by Dr. Anguiano at [facility] -PET/CT on 11/08/2024 showed intense abnormal radiotracer uptake within the endometrial canal. Hypermetabolic metastatic lymphadenopathy within chest abdomen and pelvis. Patient was not felt to be a surgical candidate was recommended to undergo chemotherapy and radiation. She was referred to [facility] for radiation. However patient has not followed up with radiation or underwent chemotherapy at this time. -CA 125 on 12/19/24 405. Repeat CA 125 stable at 407 - CT CAP ordered for restaging. Scan showing distended and heterogeneous uterine cavity and marked retroperitoneal adenopathy. Largest node approximately 4.4 cm, 4.2 cm and 3.1 cm. These appear consistent with PET/CT, with increasing size of lymphadenopathy. No evidence of metastatic disease within the thorax. Sclerotic bone lesion of T3. - Rad onc consulted. Case discussed with Estrada Quintanilla. Plan for simulation tomorrow - Records requested from [facility] and [facility]. NGS/PDL-1 will be requested on pathology - Pain medications adjusted Findings and plan of care discussed with pt and . All questions and concerns addressed Normocytic anemia: -Hgb 8.9 on admit. Upon review of EMR, previously in the 13 range -Anemia labs consistent with MONTSE, IV iron started -Hgb stable at 8.8 -Continue to monitor CBC
[2025-01-11 04:13] LABS: Methylmalonic Acid 0.13 umol/L (<0.40)
[2025-01-11] MEDS: ALPRAZolam 0.5 MG TAB PO ONE (08:28)
[2025-01-11] MEDS: MORPHINE SULFATE 4 MG/ML SYRINGE IVP STA (13:05)
--- NOTE | 2025-01-11 16:06 | P.PN ---
Subjective Progress Note Date: 01/11/25 Pt having intermittent lower abd/pelvic pain, pain meds have been adjusted. Hgb 8.8 yesterday. Plan for simulation today Objective - Vital Signs Vital signs: Vital Signs Temp 98.5 F 01/11/25 07:08 Pulse 78 01/11/25 07:08 Resp 18 01/11/25 07:08 BP 98/63 01/11/25 07:08 Pulse Ox 96 01/11/25 07:08 FiO2 Intake & Output 01/10/25 01/11/25 01/11/25 18:59 06:59 18:59 Intake Total 360 240 Output Total 2 0 Balance 358 0 240 Weight 65.771 kg Intake: Oral 360 240 Output: Stool 2 0 Other: # Voids 4 3 - Constitutional General appearance: Present: average body habitus, no acute distress - EENT Eyes: Present: anicteric sclerae, EOMI ENT: Present: hearing grossly normal - Respiratory Details: breathing is even and unlabored - Cardiovascular Details: skin warm and dry - Gastrointestinal General gastrointestinal: Present: soft, tenderness - Integumentary Integumentary: Absent: cyanotic - Psychiatric Psychiatric: Present: A&O x's 3 - Labs CBC & Chem 7: 01/10/25 05:24 01/08/25 20:54 Assessment and Plan (1) Endometrial cancer Current Visit: Yes Status: Acute Priority: High Code(s): C54.1 - MALIGNANT NEOPLASM OF ENDOMETRIUM SNOMED Code(s): 751298107 (2) Vaginal bleeding Current Visit: Yes Status: Acute Priority: High Code(s): N93.9 - ABNORMAL UTERINE AND VAGINAL BLEEDING, UNSPECIFIED SNOMED Code(s): 762377702 (3) Abdominal pain Current Visit: Yes Status: Acute Priority: High Code(s): R10.9 - UNSPECIFIED ABDOMINAL PAIN SNOMED Code(s): 43226554 Plan: Endometrial cancer: Presented for vaginal bleeding and abdominal pain, this has been intermittent x 6 months, but has recently began to worsen -Oncology history as dictated in the HPI. Previously seen by Dr. Anguiano at [facility] -PET/CT on 11/08/2024 showed intense abnormal radiotracer uptake within the endometrial canal. Hypermetabolic metastatic lymphadenopathy within chest abdomen and pelvis. Patient was not felt to be a surgical candidate was recommended to undergo chemotherapy and radiation. She was referred to [facility] for radiation. However patient has not followed up with radiation or underwent chemotherapy at this time. -CA 125 on 12/19/24 405. Repeat CA 125 stable at 407 - CT CAP ordered for restaging. Scan showing distended and heterogeneous uterine cavity and marked retroperitoneal adenopathy. Largest node approximately 4.4 cm, 4.2 cm and 3.1 cm. These appear consistent with PET/CT, with increasing size of lymphadenopathy. No evidence of metastatic disease within the thorax. Sclerotic bone lesion of T3. - Rad onc evaluated patient, plan to initiate inpt RT. - Records requested from [facility] and [facility]. NGS/PDL-1 requested on pathology -Will obtain prior auth for Carbo/taxol/keytruda. Clinic f/u scheduled on 02/[address] Margarito Barnard Findings and plan of care discussed with pt and . All questions and concerns addressed Normocytic anemia: -Hgb 8.9 on admit. Upon review of EMR, previously in the 13 range -Anemia labs consistent with MONTSE, IV iron started -Hgb stable at 8.8 -Continue to monitor CBC Doctor attests: I performed a history and physical examination of this patient, developed impression and plan of care. Discussed with dictator. I agree with dictators note, documented as a scribe.
[2025-01-11] MEDS: MORPHINE SULFATE 4 MG/ML SYRINGE IVP PRN (16:17)
[2025-01-11] MEDS: HYDROcodone/APAP 7.5-325MG 1 EACH TAB PO PRN (16:52)
--- NOTE | 2025-01-11 20:14 | P.PN ---
Progress Note - Text Progress Note Date: 01/11/25 Chief Complaint: Vaginal bleeding Pleasant 59-year-old patient, follows with Dr. Milton Small. Patient in August of this year 2024 was diagnosed with endometrial cancer by , out of [facility] bed X. A D&C was carried out. Patient was diagnosed with endometrial cancer was sent to Dr. Anguiano oncology gynecology. Out of [facility]. He did a PET scan in October. And he felt it was beyond his skill set to do any intervention. Patient denied did not to follow-up with the same. Since then no further follow-up is happened. Patient continues to have vaginal bleeding off-and-on. Now more so the last 24 hours. Some blood clots. Also lower abdominal cramping. Appetite is fair. No change in bowel pattern. As they did not wish for her to go to the decided to come to the ER. Patient had some blood clots last night. Admission hemoglobin was 10.4. This morning 8.9. Patient's is at bedside. January 10: Patient having increasing abdominal cramping earlier today. Was put on IV morphine per oncology team. Radiation oncology been consulted to see if they will be any help with the same. Per gynecology nothing else to be done currently. Spoke to the at the bedside January 11: Patient seen this morning. Having lower abdominal pain. Patient is saphenous due for radiation treatment. And simulation prior to that. He also plans another treatment tomorrow afternoon. Minimal vaginal bleeding since yesterday/overnight. Active Medications Hydrocodone Bitart/Acetaminophen (Hydrocodone/Apap 7.5-325mg 1 Each Tab) 1 each PO Q4HR PRN PRN Reason: Moderate Pain (Scale 4 to 6) Last Admin: 01/11/25 16:52 Dose: 1 each Ferric Sodium Gluconate 125 mg (/ Sodium Chloride) 110 mls @ 100 mls/hr IVPB DAILY EVY Last Admin: 01/11/25 10:08 Dose: 100 mls/hr Morphine Sulfate (Morphine Sulfate 4 Mg/Ml Syringe) 4 mg IVP Q3HR PRN PRN Reason: Severe Pain (Scale 7 to 10) Last Admin: 01/11/25 16:17 Dose: 4 mg Naloxone HCl (Naloxone 0.4 Mg/Ml 1 Ml Vial) 0.2 mg IV Q2M PRN PRN Reason: Opioid Reversal Social history: No smoking no alcohol. Lives with her . Physical examination: VITAL SIGNS: 98.4, 77, 14, 107 x 76, 95% room air GENERAL: BMI 22, in bed, bit uncomfortable EYES: Pupils equal. Conjunctiva jennifer l. HEENT: External appearance of nose and ears normal, oral cavity grossly normal. NECK: JVD not raised; masses not palpable. HEART: First and second heart sounds are normal; no edema. LUNGS: Respiratory rate normal; clear to auscultation. ABDOMEN: Soft, mild suprapubic tenderness, liver spleen not palpable, no masses palpable. PSYCH: Alert and oriented x3; mood and affect a bit anxious MUSCULOSKELETAL:No Clubbing/cyanosis;muscles-grossly intact. Some OA of the joints INVESTIGATIONS, reviewed in the clinical context: Ca 125 antigen: 4.7 January 10: White count 7.1 hemoglobin 8.8 platelets 45 January 09, 2025: White count 7.1 hemoglobin 8.9 platelets 450 January 08: White count 9.3 hemoglobin 10.4 platelets 516 sodium 131 creatinine 0.45 Assessment and plan: - Acute on chronic severe uterine bleeding the patient known endometrial cancer. Patient did have some significant blood clots last night. Patient's had D&C in August. Had also follow-up with Dr. Moreno out of [facility]. Did have a PET scan. Was not able to do any further intervention. Patient looking for further guidance in terms of her endometrial cancer treatment. Being followed by oncology Dr. Pal Barnard Seen by OTR OWNER OPERATOR TRUCK DRIVER: For pelvic cramping will use K-pad patient already on [place]. Seen by Dr. Violette Solorio: Due for radiation treatment this afternoon. And repeat 1 tomorrow. - Lower abdominal pain cramping from uterine tumor Pain treatment Consult pain management team - Acute blood loss anemia from recurrent vaginal bleeding Follow H&H. IV Ferrlecit - Primary osteoarthritis [place] 5 Discussed with the . Simulation and radiation treatment today Past Medical History Past Medical History: Cancer, GERD/Reflux Additional Past Medical History / Comment(s): no meds now for gerd History of Any Multi-Drug Resistant Organisms: None Reported Past Surgical History: Joint Replacement, Orthopedic Surgery Additional Past Surgical History / Comment(s): knee rplaced left and hip replaced left, meniscus repair right knee, right foot bunion, right hand carpal tunnel Past Anesthesia/Blood Transfusion Reactions: Postoperative Nausea & Vomiting (PONV) Additional Past Anesthesia/Blood Transfusion Reaction / Comment(s): no blood transfusion Past Psychological History: No Psychological Hx Reported Smoking Status: Never smoker Past Alcohol Use History: None Reported Past Drug Use History: None Reported
[2025-01-12 07:54] VITALS: TEMP 98.4
[2025-01-12 10:12] LABS: Basophils # (A) 0.03 X 10*3/uL (0.00-0.10); Basophils % (A) 0.3 %; Eosinophils # (A) 0.18 X 10*3/uL (0.04-0.35); HCT 27.5 % (37.2-46.3); HGB 8.5 g/dL (12.0-15.0); Lymphocytes # (A) 1.14 X 10*3/uL (0.90-5.00); Lymphocytes % (A) 12.8 %; MCH 27.6 pg (27.0-32.0); MCHC 30.9 g/dL (32.0-37.0); MCV 89.3 FL (80.0-97.0); Mean Platelet Volume 9.3 FL (9.5-12.2); Monocytes % (A) 10.1 %; NRBC Per 100 WBC 0 X 10*3/uL (0.00-0.01); Neutrophils % (A) 74.1 %; Platelet Count 427 X 10*3/uL (140-440); RBC 3.08 X 10*6/uL (4.10-5.20); RDW 13.9 % (11.5-14.5); WBC 8.91 X 10*3/uL (4.50-10.00)
[2025-01-12] MEDS: MORPHINE SULFATE 4 MG/ML SYRINGE IVP STA (11:15)
[2025-01-12] MEDS ORDERED: MORPHINE SULFATE 4 MG/ML SYRINGE IVP PRN (11:34)
[2025-01-12] MEDS: HYDROcodone/APAP 10-325MG 1 EACH TAB PO PRN (12:45)
[2025-01-12 13:07] VITALS: BP 105/69; PULSE 85; RESP 18
--- NOTE | 2025-01-12 20:12 | P.DS ---
Providers Date of admission: 01/08/25 22:10 Expected date of discharge: 01/12/25 Attending physician: Flex Cerrato Consults: 01/08/25 22:08 Consult Physician Routine Consulting Provider: Sudhir Bass Consult Reason/Comments: CA Do you want consulting provider notified?: Yes Consult Physician Routine Consulting Provider: Swapnil Guaman Consult Reason/Comments: CA Do you want consulting provider notified?: Yes 01/09/25 13:09 Consult Physician Routine Consulting Provider: Evans Dorado Consult Reason/Comments: vaginal bleeding, endometrial cancer Do you want consulting provider notified?: Yes 01/11/25 20:13 Consult Physician Routine Consulting Provider: Lizett Hickman Consult Reason/Comments: Pain management Do you want consulting provider notified?: Yes Primary care physician: Raffy Geovanny [facility] Course: Chief Complaint: Vaginal bleeding Pleasant 59-year-old patient, follows with Dr. Milton Small. Patient in August of this year 2024 was diagnosed with endometrial cancer by , out of [facility] X. A D&C was carried out. Patient was diagnosed with endometrial cancer was sent to Dr. Anguiano oncology gynecology. Out of [facility]. He did a PET scan in October. And he felt it was beyond his skill set to do any intervention. Patient denied did not to follow-up with the same. Since then no further follow-up is happened. Patient continues to have vaginal bleeding off-and-on. Now more so the last 24 hours. Some blood clots. Also lower abdominal cramping. Appetite is fair. No change in bowel pattern. As they did not wish for her to go to the decided to come to the ER. Patient had some blood clots last night. Admission hemoglobin was 10.4. This morning 8.9. Patient's is at bedside. January 10: Patient having increasing abdominal cramping earlier today. Was put on IV morphine per oncology team. Radiation oncology been consulted to see if they will be any help with the same. Per gynecology nothing else to be done currently. Spoke to the at the bedside January 11: Patient seen this morning. Having lower abdominal pain. Patient is saphenous due for radiation treatment. And simulation prior to that. He also plans another treatment tomorrow afternoon. Minimal vaginal bleeding since yesterday/overnight. January 12: Patient received radiation treatment yesterday and today. For deep pelvic pain patient started on Duragesic patch by oncology. Pain management discussed with the patient and . Also will be getting Roberts as needed. Patient supposed to follow-up with further treatment on January 29. Follow-up with oncology and radiation oncology. Patient not a surgical candidate. External beam radiation is both for bleeding control and pain. Patient will get a total of 15 sessions. Diagnosis stage IV advanced high-grade endometrial carcinoma. Discussion and discharge planning more than 35 minutes Social history: No smoking no alcohol. Lives with her . Physical examination: VITAL SIGNS: 98.4, 85, 18, 105 x 69, 94% room air GENERAL: BMI 22, in bed, bit uncomfortable EYES: Pupils equal. Conjunctiva jennifer l. HEENT: External appearance of nose and ears normal, oral cavity grossly normal. NECK: JVD not raised; masses not palpable. HEART: First and second heart sounds are normal; no edema. LUNGS: Respiratory rate normal; clear to auscultation. ABDOMEN: Soft, some suprapubic tenderness, liver spleen not palpable, no masses palpable. PSYCH: Alert and oriented x3; mood and affect a bit anxious MUSCULOSKELETAL:No Clubbing/cyanosis;muscles-grossly intact. Some OA of the joints INVESTIGATIONS, reviewed in the clinical context: January 12: White count 8.9 hemoglobin 8.5 platelets 427 Ca 125 antigen: 4.7 January 10: White count 7.1 hemoglobin 8.8 platelets 45 January 09, 2025: White count 7.1 hemoglobin 8.9 platelets 450 January 08: White count 9.3 hemoglobin 10.4 platelets 516 sodium 131 creatinine 0.45 Assessment and plan: - Acute on chronic severe uterine bleeding the patient known endometrial cancer. Patient did have some significant blood clots last night. Patient's had D&C in August. Had also follow-up with Dr. Moreno out of [facility]. Did have a PET scan. Was not able to do any further intervention. Patient looking for further guidance in terms of her endometrial cancer treatment. Being followed by oncology Dr. Pal Barnard Seen by PRINCIPLE SOFTWARE ENGINEER:-Not felt to be a surgical candidate For pelvic cramping will use K-pad patient already on Roberts. Duragesic 25 patch added Seen by Dr. Violette Solorio: External beam radiation to treatments given. Return on January 29. Total of 15 treatments will be given. - Lower abdominal pain cramping from uterine tumor Duragesic patch 25. Roberts as needed. Consult pain management team - Acute blood loss anemia from recurrent vaginal bleeding Follow H&H. IV Ferrlecit - Primary osteoarthritis Roberts 5 Disposition: Home Past Medical History Past Medical History: Cancer, GERD/Reflux Additional Past Medical History / Comment(s): no meds now for gerd History of Any Multi-Drug Resistant Organisms: None Reported Past Surgical History: Joint Replacement, Orthopedic Surgery Additional Past Surgical History / Comment(s): knee rplaced left and hip replaced left, meniscus repair right knee, right foot bunion, right hand carpal tunnel Past Anesthesia/Blood Transfusion Reactions: Postoperative Nausea & Vomiting (PONV) Additional Past Anesthesia/Blood Transfusion Reaction / Comment(s): no blood transfusion Past Psychological History: No Psychological Hx Reported Smoking Status: Never smoker Past Alcohol Use History: None Reported Past Drug Use History: None Reported Plan - Discharge Summary Discharge Rx Participant: Yes New Discharge Prescriptions: New fentaNYL 25MCG/HR PATCH [Duragesic 25MCG/HR] 1 patch TRANSDERM Q72H #10 patch Changed HYDROcodone/APAP 5-325MG [Roberts 5-325] 1 tab PO Q6H #30 tab Discharge Medication List HYDROcodone/APAP 5-325MG [Roberts 5-325] 1 tab PO Q6H #30 tab 01/12/25 [Rx] fentaNYL 25MCG/HR PATCH [Duragesic 25MCG/HR] 1 patch TRANSDERM Q72H #10 patch 01/12/25 [Rx] Follow up Appointment(s)/Referral(s): Anita Barnard MD [STAFF PHYSICIAN] - 02/02/25 (Patient already aware of appointment) Raffy Small MD [Primary Care Provider] - 01/16/25 2:00 pm Patient Instructions/Handouts: Hydrocodone/Acetaminophen (By mouth), Fentanyl (Absorbed through the skin) Activity/Diet/Wound Care/Special Instructions: Next radiation treatment January 29 at [facility] Remove Fentanyl patch WednesdayJanuary 15 and replace with new patch - Change every 3 days Discharge Disposition: HOME SELF-CARE
== END 2025-01-12 15:16 | disposition home or self-care (01) | DRG 841 ==
LOC: EC 20:37 → UNDOADMOB 22:09 → 5NMEDONC 22:09 → OBSVTOIN 22:10 → INTOOBSV 22:10 → 5NMEDONC 01-09 06:50 → OBSVTOIN 01-11 00:01 → UNDODISIN 01-12 15:16
PROVIDERS: ADMIT Hospitalist; ATTEND Hospitalist
PROC: DW062ZZ Beam Radiation of Pelvic Region using Photons >10 MeV (ICD-10-PCS; principal; 2025-01-11)
DX: C77.8 Secondary and unspecified malignant neoplasm of lymph nodes of multiple regions (principal); B37.89 Other sites of candidiasis; D62 Acute posthemorrhagic anemia; C54.1 Malignant neoplasm of endometrium; D63.0 Anemia in neoplastic disease; M19.91 Primary osteoarthritis, unspecified site; M89.9 Disorder of bone, unspecified; N93.8 Other specified abnormal uterine and vaginal bleeding; Z80.7 Family history of other malignant neoplasms of lymphoid, hematopoietic and related tissues; Z80.6 Family history of leukemia; Z80.41 Family history of malignant neoplasm of ovary; Z80.3 Family history of malignant neoplasm of breast; Z79.899 Other long term (current) drug therapy; Z96.642 Presence of left artificial hip joint; Z96.652 Presence of left artificial knee joint
CPT/HCPCS: 36415; 71260; 74177; 77387; 77412; 80053; 82607; 82728; 82747; 83540; 83550; 83735; 83921; 84100; 84484; 85025; 85610; 85730; 86304; 86850; 86900; 86901; 93005; 96361; 96374; 96376; 99285